=== PATIENT | male | born 1950 | race Caucasian/White ===

== ENCOUNTER → 2018-03-19 | Outpatient (RCR) | payer OTHER ==
[~2018-03-19] MED LIST: APRISO0.375 GM PO; BACTRIM DS TAB1 EACH; BUDESONIDE EC3 MG PO; CHLORTHALIDONE25 MG PO; GLIMEPIRIDE2 MG PO; LEVAQUIN500 MG PO; PREDNISONE20 MG PO; TAMIFLU75 MG PO; Z.0.ATENOLOL25 MG PO; Z.0.LISINOPRIL40 MG PO; Z.2.METFORMIN HCL500 PO
== END ==
LOC: PT 09:53
PROVIDERS: ATTEND Neurological Surgery
DX: M48.062 Spinal stenosis, lumbar region with neurogenic claudication (principal); M54.5 Low back pain; M62.81 Muscle weakness (generalized)

== ENCOUNTER 2018-03-31 10:00 | Outpatient (RCR) | payer OTHER | END 2018-04-16 | LOC: PT 10:00 | PROVIDERS: ATTEND Neurological Surgery | DX: M48.062 Spinal stenosis, lumbar region with neurogenic claudication (principal); M54.5 Low back pain; M62.81 Muscle weakness (generalized) ==

== ENCOUNTER → 2018-07-27 | Day surgery (SDC) | payer OTHER ==
[2018-07-24 14:45] LABS: BASOPHILS # (AUTO) 0.1 (0.0-0.1); BASOPHILS % 0.6 % (0.0-1.0); EOSINOPHILS # (AUTO) 0.4 (0.0-0.4); EOSINOPHILS % 3.5 % (0.0-6.0); HEMATOCRIT 36.1 % (38.2-49.6); HEMOGLOBIN 12.4 g/dL (14.0-18.0); LYMPHOCYTES # (AUTO) 3.8 (1.0-3.2); LYMPHOCYTES % 33.4 % (18.0-39.1); MEAN CORPUSCULAR HEMOGLOBIN 30.1 pg (28-32); MEAN CORPUSCULAR HGB CONC 34.3 g/dL (31-35); MEAN CORPUSCULAR VOLUME 87.6 fL (81-99); MONOCYTES # (AUTO) 0.8 (0.2-0.8); MONOCYTES % 6.8 % (4.4-11.3); NEUTROPHILS # (AUTO) 6.4 (2.1-6.9); NEUTROPHILS % 55.5 % (38.7-80.0); PLATELET COUNT 315 x10e3/uL (140-360); RED BLOOD COUNT 4.12 x10e6/uL (4.3-5.7); RED CELL DISTRIBUTION WIDTH 14.1 % (11.7-14.4)
[~2018-07-27] MED LIST changes: +ATENOLOL50 MG PO; +ATORVASTATIN CA20 MG PO; +BUPIVACAINE HCL 0.5% INJ 30 ML VIAL INJ ONE; +CLOPIDOGREL75 MG PO; +HYDROMORPHONE 2MG/ML 2 MG/ML ML ONE; +IOPAMIDOL 610MG/1ML 300 MG/ML VIAL IV ONE; +LIDOCAINE HCL 1% LOCAL INJ 20 ML VIAL ONE; +LISINOPRIL40 MG PO; +MIDAZOLAM HCL 2 MG/2 ML VIAL ONE; +NOVOLOG MI100 UNIT/1 SC; +NOVOLOG100 UNIT/1 SC; +ONDANSETRON HCL INJ 2MG/ML 2ML 2 MG/ML VIAL ONE; +PIOGLITAZONE HC45 MG PO; +PROPOFOL IV EMULSION 10 MG/ML 20 ML VIAL ONE; +TRIAMCINOLONE ACET 40 MG/ML VIAL ONE; +tresiba SC
--- OUTSIDE RECORDS SUMMARY | 2018-07-27 05:14 | XMS REPORT | Clinical Summary ---
Author Author [facility] Address Unknown Phone Unavailable Care Team Providers Care Numerical Analysis Group Manager Name Role Phone Baltazar Doyle MD PCP Allergies Comments Active Allergy Reactions Severity Noted Date Nausea Codeine 01/22/2018 hallucination Butorphanol Tartrate 01/22/2018 Medications End Date Status Medication Sig Dispensed Refills Start Date Active atenolol (TENORMIN) 25 MG Take 25 mg by 5 tablet mouth daily. 8 Active atorvastatin (LIPITOR) 40 Take 40 mg by 5 MG tablet mouth 8 nightly. Active clopidogrel (PLAVIX) 75 Take 75 mg by 5 mg tablet mouth daily. 8 Active TRESIBA FLEXTOUCH U-100 INJECT 1 100 unit/mL (3 mL) 35UNITS UP TO 8 insulin pen 50 UNITS PER DAY SUBCUTANEOUSL Y EVERY NIGHT AT BEDTIME Active isosorbide mononitrate TAKE 1 TABLET 3 (IMDUR) 30 MG 24 hr BY MOUTH 8 tablet EVERY DAY IN THE MORNING Active lisinopril Take 40 mg by 0 (PRINIVIL,ZESTRIL) 40 mg mouth daily. 8 tablet Active APRISO 0.375 gram 24 hr TAKE 4 2 capsule CAPSULES BY 8 MOUTH EVERY DAY Active nitroglycerin (NITROSTAT) 0 0.3 MG SL tablet 8 Active aspirin (ECOTRIN) 81 MG Take 81 mg by 0 enteric coated tablet mouth daily. Active insulin ASPART (NovoLOG) Inject 15 0 100 unit/mL injection Units under the skin 3 (three) times a day before meals. Active budesonide (UCERIS) 9 mg Take by 0 tablet, delayed & mouth. ext.release 02/01/2018 cyclobenzaprine Take 1 tablet 30 tablet 0 (FLEXERIL) 5 mg (5 mg total) 8 tabletIndications: Lumbar by mouth paraspinal muscle spasm every 8 (eight) hours as needed for muscle spasms for up to 10 days. Active Problems Problem Noted Date Hypertension Diabetes mellitus type 2 in nonobese Coronary artery disease Encounters Care Team Description Date Type Specialty Krista Larson, DO Lumbar paraspinal muscle spasm 03/25/2018 Refill Sports Medicine Krista Larson DO Lumbar paraspinal muscle spasm (Primary Dx); Arthritis of lumbar spine 01/22/2018 Office Visit Sports Medicine after 07/26/2017 Family History Medical History Relation Name Comments Pancreatic cancer Brother No Known Problems Father No Known Problems Mother Relation Name Status Comments Brother Father Mother Social History Date Tobacco Use Types Packs/Day Years Used Current Every Day Smoker Cigarettes 1 50 Smokeless Tobacco: Never Used Tobacco Cessation: Ready to Quit: No; Counseling Given: Yes Alcohol Use Drinks/Week oz/Week Comments No Alcohol Habits Answer Date Recorded How often do you have a drink containing alcohol? Never 01/22/2018 How many drinks containing alcohol do you have on Not asked a typical day when you are drinking? How often do you have six or more drinks on one Not asked occasion? Sex Assigned at Date Recorded Not on file Industry Job Start Date Occupation Not on file Not on file Not on file Travel End Travel History Travel Start No recent travel history available. Last Filed Vital Signs Time Taken Vital Sign Reading 01/22/2018 2:40 PM CUTTER INSPECTOR Blood Pressure 112/76 01/22/2018 1:44 PM CUTTER INSPECTOR Pulse 79 - Temperature - - Respiratory Rate - - Oxygen Saturation - - Inhaled Oxygen - Concentration 01/22/2018 1:44 PM CUTTER INSPECTOR Weight 91.5 kg (201 lb 12.8 oz) 01/22/2018 1:44 PM CUTTER INSPECTOR Height 177.8 cm (5' 10") 01/22/2018 1:44 PM CUTTER INSPECTOR Body Mass Index 28.96 Plan of Treatment Health Maintenance Due Date Last Done Comments DIABETIC RETINAL EYE EXAM 1950 DIABETIC FOOT EXAM 06/28/1961 URINE MICROALBUMIN 06/28/1961 COLON CANCER SCREENING 06/28/2001 SHINGLES VACCINES (#1) 06/28/2001 65+ PNEUMOCOCCAL VACCINE 06/28/2016 (1 of 2 - PCV13) INFLUENZA VACCINE 09/17/2018 Procedures Comments Procedure Name Priority Date/Time Associated Diagnosis XR LUMBAR SPINE 2 OR 3 VW Routine 01/22/2018 Low back pain, 2:00 PM CUTTER INSPECTOR unspecified back pain laterality, unspecified chronicity, with sciatica presence unspecified after 07/26/2017 Results * XR Lumbar Spine 2 Or 3 Vw (01/22/2018 2:00 PM CUTTER INSPECTOR) Specimen Narrative Performed At [facility] 3V of the lumbar spine were personally reviewed by me in clinic. There are no fractures, dislocations, suspicious bone lesions or soft tissue masses. There is diffuse mild to moderate degenerative disc disease with anterior spurring of the vertebral bodies. L5-S1 has more severe disease with apparent partial fusion. The SI joints are mildly arthritic. The lordotic curve is mildly flattened. There is no listhesis. Surgical clips are seen in the RUQ consistent with history of cholecystectomy. Krista Larson DO [facility] Performing Organization Address City/State/Zipcode Phone Number [facility] [address] [place] [address] after 07/26/2017 Insurance Type Payer Benefit Subscriber ID Effective Phone Address Plan / Dates Group HMO CIGNA CIGNA OPEN xxxxxxxxxxx 2015-P ACCESS/NET resent WORK Advance Directives Patient has advance care planning documents on file. For more information, nura johnson contact: Carlos Alberto Valerio [address] [place] [address]
--- OUTSIDE RECORDS SUMMARY | 2018-07-27 05:14 | XMS REPORT ---
[facility] Address Unknown Phone Unavailable Care Team Providers Care Certified Dialysis Technician Name Role Phone Unavailable Unavailable Payers Payer Name Policy Type Policy Number Effective Date Expiration Date Problems This patient has no known problems. Allergies, Adverse Reactions, Alerts Allergy Name Allergy Type Status Severity Reaction(s) Onset Date Inactive Date Treating Clinician Comments butorphanol tartrate DA Active MO 2018-01-19 00:00:00 codeine DA Active SV 2018-01-19 00:00:00 codeine DA Active SV 2018-01-06 00:00:00 butorphanol tartrate DA Active MO 2010-09-23 00:00:00 Medications This patient has no known medications. Results Test Description Test Time Test Comments Text Results Atomic Results Result Comments INTERVERTEBRAL DISC 2018-03-05 14:42:00 RUN DATE: 03/05/18 [facility] PAGE 1 RUN TIME: 1442 Specimen Inquiry RUN USER: INTERFACE PATIENT: ALEXI LAMB LOC: [facility] U #: [id number] AGE/SX: 67/M [facility] RE03/02/18REG DR: Giovanny Bertrand MD : 52 BED: A DIS: 03/03/18 STATUS: DIS Ana TLOC: SPEC #: [id number] RECD: 03/02/18 STATUS: NIRMALA RE #: [id number] STEPHAN: 03/02/18-[address]: Giovanny Bertrand MD ENTERED: 03/02/18 SP TYPE: INT DISC OTHR DR: Baltazar Doyle III, MD ORDERED: GROSS COPIES TO: Giovanny Bertrand MD [address] [place] [address] Baltazar Doyle III, MD [address] [place], [place] [id number] PROCEDURES: GROSS (03/05/18-140) TISSUES: LUMBAR VERTEBRA, NOS - LAGIMENTUM AND FAVUOR, DISC CLINICAL HISTORY COLLECTION DATE: 03/02/18 L3-4 SPINAL STENOSIS FINAL DIAGNOSIS L3-4 lumbar ligament, lamina, and disc, bilateral laminectomy: LIGAMENT TYPE FIBROCONNECTIVE TISSUE, BONE, AND INTERVERTEBRAL DISC MATERIAL NEGATIVE FOR MALIGNANCY DMW/sm D 50284, 32009 MACROSCOPIC The specimen is received in formalin, labeled with the patient's name, and identified as "lumbar ligamentum flavum". It consists of multiple sauer fibrous sauer and pale yellow fragments of tissue and bone measuring 5.0 x 4.5 x 1 cm in aggregate. The specimen is allowed to decalcify before samples are submitted. Sign Maintenance tissue is submitted in a single CONTINUED ON NEXT PAGE RUN DATE: 03/05/18 [facility] PAGE 2 RUN TIME: 1442 Specimen Inquiry RUN USER: INTERFACE SPEC #: [id number] PATIENT: ALEXI LAMB #[id number] (Co ntinued) MACROSCOPIC (Continued) cassette. GROSS PERFORMED AT [facility] [address] [place] [address] (P)[phone] MICROSCOPIC MICROSCOPIC PERFORMED AT [facility] All of the stains, including any controls performed, stain appropriately. [facility] [address] [place] [address] (P)[phone] PERFORMING SITE Diagnosis performed at: [facility] [address] [facility] [address] Signed SIGNATURE ON FILE Ava Torres 03/05/18 1442 END OF REPORT
[2018-07-27 07:55] VITALS: BP 149/78
--- NOTE | 2018-07-27 16:41 | Operative Report ---
DATE OF PROCEDURE: 07/27/2018 SURGEON: Tam Knox MD PREOPERATIVE DIAGNOSIS: Osteoarthritis, left hip. POSTOPERATIVE DIAGNOSIS: Osteoarthritis, left hip. PROCEDURE: Left hip fluoroscopic-guided corticosteroid injection. INDICATIONS: The patient is a 68-year-old gentleman, who has advanced osteoarthritis of his left hip. He has previously been scheduled for left total hip replacement. His hemoglobin A1c fell out of the recommended range. We have encouraged him to improve his diabetic management. He would like to have corticosteroid injection in the meantime. The risks and benefits were explained. He states he understands and wishes to proceed. DESCRIPTION OF PROCEDURE: The patient was brought to the operating room and placed under MAC anesthetic. His left hip was prepped and draped in a sterile manner. A preoperative time-out was performed. Using a C-arm image intensifier, an 18-gauge spinal needle was placed into the inferior recess of the patella. Clear synovial fluid was aspirated from the hip. A mixture of 40 mg of Kenalog and 8 mL of Marcaine were injected into the hip joint. The needle was retrieved and a Band-Aid was applied. There was no blood loss and all needle and sponge counts were correct. Tam Knox MD DR/QINGL /[id number]
== END | disposition home or self-care (01) ==
LOC: OR 05:03
PROVIDERS: ATTEND Specialist
DX: M16.0 Bilateral primary osteoarthritis of hip (principal); E11.9 Type 2 diabetes mellitus without complications; I10 Essential (primary) hypertension; F17.210 Nicotine dependence, cigarettes, uncomplicated; Z88.5 Allergy status to narcotic agent; Z88.8 Allergy status to other drugs, medicaments and biological substances; Z89.611 Acquired absence of right leg above knee; I25.10 Atherosclerotic heart disease of native coronary artery without angina pectoris; Z95.5 Presence of coronary angioplasty implant and graft; K21.9 Gastro-esophageal reflux disease without esophagitis; Z87.442 Personal history of urinary calculi; Z79.4 Long term (current) use of insulin; Z01.810 Encounter for preprocedural cardiovascular examination; Z01.812 Encounter for preprocedural laboratory examination
CPT/HCPCS: 20610; 36415; 77002; 85025; 93005; J1170; J2250; J2405; J2704; J3301; Q9967; J2001

== ENCOUNTER 2018-09-14 07:30 | Inpatient (IN) | payer OTHER, MEDICARE ==
[2018-09-11 15:43] LABS: BASOPHILS # (AUTO) 0.1 (0.0-0.1); BASOPHILS % 0.9 % (0.0-1.0); EOSINOPHILS # (AUTO) 0.4 (0.0-0.4); EOSINOPHILS % 3.1 % (0.0-6.0); HEMATOCRIT 39.1 % (38.2-49.6); HEMOGLOBIN 13.3 g/dL (14.0-18.0); LYMPHOCYTES # (AUTO) 4.6 (1.0-3.2); LYMPHOCYTES % 32.3 % (18.0-39.1); MEAN CORPUSCULAR HEMOGLOBIN 30.1 pg (28-32); MEAN CORPUSCULAR VOLUME 88.5 fL (81-99); MONOCYTES # (AUTO) 0.9 (0.2-0.8); MONOCYTES % 6.5 % (4.4-11.3); NEUTROPHILS # (AUTO) 8.2 (2.1-6.9); NEUTROPHILS % 56.8 % (38.7-80.0); PLATELET COUNT 328 x10e3/uL (140-360); RED BLOOD COUNT 4.42 x10e6/uL (4.3-5.7); RED CELL DISTRIBUTION WIDTH 13.2 % (11.7-14.4)
[2018-09-11 16:07] LABS: ANION GAP 15.5 mmol/L (8-16); CALCIUM 9.7 mg/dL (8.4-10.2); CREATININE, SERUM 1.35 mg/dL (0.72-1.25); POTASSIUM 3.5 mmol/L (3.5-5.1)
--- NOTE | 2018-09-11 16:14 | Diagnostic Imaging Report ---
EXAMINATION: CHEST 2 VIEWS INDICATION: Pre-operative COMPARISON: None FINDINGS: TUBES and LINES: None. LUNGS: The lung volumes are normal. No focal consolidation or pulmonary edema. PLEURA: No pleural effusion or pneumothorax. HEART AND MEDIASTINUM: The cardiomediastinal silhouette is normal in size and contour. BONES AND SOFT TISSUES: No acute fracture or dislocation. UPPER ABDOMEN: No free air under the diaphragm. IMPRESSION: No focal pneumonia or pulmonary edema. Signed by: Florencia Mosley MD on 09/11/2018 4:10 PM
[~2018-09-14] VITALS: Ht 177.8 cm; Wt 88.9 kg
[~2018-09-14 07:30] MED LIST changes: +ASPIRIN81 MG PO; +BACITRACIN 50,000 UNIT VIAL ONE; -BUPIVACAINE HCL 0.5% INJ 30 ML VIAL INJ ONE; -HYDROMORPHONE 2MG/ML 2 MG/ML ML ONE; -IOPAMIDOL 610MG/1ML 300 MG/ML VIAL IV ONE; -LIDOCAINE HCL 1% LOCAL INJ 20 ML VIAL ONE; -MIDAZOLAM HCL 2 MG/2 ML VIAL ONE; -ONDANSETRON HCL INJ 2MG/ML 2ML 2 MG/ML VIAL ONE; -PROPOFOL IV EMULSION 10 MG/ML 20 ML VIAL ONE; +ROPIVACAINE 246.25 MG, EPINEPHRINE HCL 1:1000 1ML 0.5 MG, CLONIDINE HCL 0.08 MG, KETORO... INJ ONE; +SODIUM CHLORIDE 0.9% 500ML 500 ML ONE; +TRANEXAMIC ACID 1,000 MG/10 ML ML ONE; -TRIAMCINOLONE ACET 40 MG/ML VIAL ONE; +VANCOMYCIN HCL 1,000 MG ONE
--- OUTSIDE RECORDS SUMMARY | 2018-09-14 07:33 | XMS REPORT | Clinical Summary ---
Author Author [facility] Address Unknown Phone Unavailable Care Team Providers Care Multi Line Claims Adjuster Name Role Phone Baltazar Doyle MD PCP Unavailable Allergies Comments Active Allergy Reactions Severity Noted [...] spine 01/22/2018 Office Visit Sports Medicine after 09/13/2017 Family History Medical History Relation Name Comments [...] Taken Vital Sign Reading 01/22/2018 2:40 PM DIRECTOR OF MATERIALS Blood Pressure 112/76 01/22/2018 1:44 PM DIRECTOR OF MATERIALS Pulse 79 - Temperature - - Respiratory Rate - - Oxygen Saturation - - Inhaled Oxygen - Concentration 01/22/2018 1:44 PM DIRECTOR OF MATERIALS Weight 91.5 kg (201 lb 12.8 oz) 01/22/2018 1:44 PM DIRECTOR OF MATERIALS Height 177.8 cm (5' 10") 01/22/2018 1:44 PM DIRECTOR OF MATERIALS Body Mass Index 28.96 Plan of Treatment Health Maintenance Due Date Last Done Comments DIABETIC RETINAL EYE EXAM 1950 DIABETIC FOOT EXAM 06/28/1961 URINE MICROALBUMIN 06/28/1961 COLONOSCOPY SCREENING 06/28/2001 SHINGLES VACCINES (#1) 06/28/2001 65+ PNEUMOCOCCAL VACCINE 06/28/2016 (1 of 2 - PCV13) INFLUENZA VACCINE 09/17/2018 Procedures Comments Procedure Name Priority Date/Time Associated Diagnosis XR LUMBAR SPINE 2 OR 3 VW Routine 01/22/2018 Low back pain, 2:00 PM DIRECTOR OF MATERIALS unspecified back pain laterality, unspecified chronicity, with sciatica presence unspecified after 09/13/2017 Results * XR Lumbar Spine 2 Or 3 Vw (01/22/2018 2:00 PM DIRECTOR OF MATERIALS) Specimen Narrative Performed At [facility] 3V [...] RUQ consistent with history of cholecystectomy. Krista Larson, [facility] Primary [facility] Performing Organization Address City/State/Zipcode Phone Number [facility] [address] [place] [address] after 09/13/2017 Insurance Type Payer Benefit Subscriber ID Effective Phone Address Plan / Dates Group HMO CIGNA CIGNA OPEN xxxxxxxxxxx 2015-P ACCESS/NET resent WORK Advance Directives Patient has advance care planning documents on file. For more information, nura e contact: Carlos Alberto Valerio [address] [place] [address]
[2018-09-14] MEDS ORDERED: DEXAMETHASONE SOD PHOS 10 MG/1 ML VIAL ONE (08:03)
[2018-09-14] MEDS ORDERED: GABAPENTIN 300 MG CAP ONE (08:03)
[2018-09-14] MEDS ORDERED: CELECOXIB 200 MG CAP ONE (08:03)
[2018-09-14] MEDS ORDERED: CEFAZOLIN SOD 1 GM/NS 50ML 100 ML IV ONE (08:03)
[2018-09-14] MEDS ORDERED: BUPIVACAINE 7.5MG/ML /DEXTROSE 82.5MG/ML 2 ML AMP INJ ONE (09:22)
[2018-09-14] MEDS ORDERED: BUPIVACAINE HCL 0.5% 10ML MPF VIAL INJ ONE (09:36)
[2018-09-14] MEDS ORDERED: ACETAMINOPHEN 650 MG SUPP PR PRN (11:45)
[2018-09-14] MEDS ORDERED: PROMETHAZINE HCL (IM) 25 MG/ML VIAL INJ PRN (11:45)
[2018-09-14] MEDS ORDERED: DOCUSATE SODIUM 100 MG CAP PO PRN (11:45)
[2018-09-14] MEDS ORDERED: HYDROCODONE/APAP 7.5MG-325MG 1 EA TAB PO PRN (11:45)
[2018-09-14] MEDS ORDERED: KETOROLAC TROMETHAMINE 30 MG/ML VIAL IV PRN (11:45)
[2018-09-14] MEDS ORDERED: ONDANSETRON HCL INJ 2MG/ML 2ML 2 MG/ML VIAL IV PRN (11:45)
[2018-09-14] MEDS ORDERED: HYDROCODONE/APAP 5MG-325MG TAB PO PRN (11:45)
[2018-09-14] MEDS ORDERED: DIPHENHYDRAMINE HCL INJ 50 MG/ML VIAL IM/IV PRN (11:45)
[2018-09-14] MEDS ORDERED: ZOLPIDEM TARTRATE 5 MG TAB PO PRN (11:45)
[2018-09-14] MEDS ORDERED: FENTANYL CITRATE/PF 100MCG/2 ML INJ ONE ×2 (11:58→18:33)
--- NOTE | 2018-09-14 12:10 | Diagnostic Imaging Report ---
EXAMINATION: PELVIS AP 1-2 VIEWS INDICATION: Postoperative COMPARISON: None FINDINGS: Single AP portable pelvis radiograph demonstrates postoperative findings of left total hip replacement in anatomic alignment. There is postoperative subcutaneous air and surgical skin eliseo. No acute fracture. Mild degenerative changes involve the right hip joint. IMPRESSION: Anatomic alignment status post left total hip replacement. Signed by: Florencia Mosley MD on 09/14/2018 12:07 PM
[2018-09-14] MEDS: ACETAMINOPHEN 1000 MG/100 ML IV SCH ×3 (12:16→23:27)
[2018-09-14] MEDS ORDERED: KETOROLAC TROMETHAMINE 30 MG/ML VIAL ONE (12:17)
[2018-09-14] MEDS ORDERED: ACETAMINOPHEN 1000 MG/100 ML 100 ML IV ONE (12:17)
--- OUTSIDE RECORDS SUMMARY | 2018-09-14 12:40 | XMS REPORT | Clinical Summary ---
Author Author [facility] Address Unknown Phone Unavailable Care Team Providers Care Hand Edger Name Role Phone Baltazar Doyle MD PCP [...] Taken Vital Sign Reading 01/22/2018 2:40 PM WARP YARN SORTER Blood Pressure 112/76 01/22/2018 1:44 PM WARP YARN SORTER Pulse 79 - Temperature - - Respiratory Rate - - Oxygen Saturation - - Inhaled Oxygen - Concentration 01/22/2018 1:44 PM WARP YARN SORTER Weight 91.5 kg (201 lb 12.8 oz) 01/22/2018 1:44 PM WARP YARN SORTER Height 177.8 cm (5' 10") 01/22/2018 1:44 PM WARP YARN SORTER Body Mass Index 28.96 Plan of Treatment [...] Routine 01/22/2018 Low back pain, 2:00 PM WARP YARN SORTER unspecified back pain laterality, unspecified chronicity, with sciatica presence unspecified after 09/13/2017 Results * XR Lumbar Spine 2 Or 3 Vw (01/22/2018 2:00 PM WARP YARN SORTER) Specimen Narrative Performed At [facility] 3V [...] Performing Organization Address City/State/Zipcode Phone Number [facility] [address] [place] [address] after 09/13/2017 Insurance Type Payer Benefit Subscriber ID Effective Phone Address Plan / Dates Group HMO CIGNA CIGNA OPEN xxxxxxxxxxx 2015-P ACCESS/NET resent WORK Advance Directives Patient has advance care planning documents on file. For more information, nura e contact: Carlos Alberto Valerio [address] [place] [address]
--- NOTE | 2018-09-14 12:55 | NUR ---
Received patient via stretcher from PACU. Accompanied by [email or web address] to time, person, place, situation. Respirations even and unlabored. Aquacel dressing to left hip clean, dry, and intact. Wedge between legs. Oriented patient to room. Instructed to use call light for assistance. Will continue to monitor.
[2018-09-14 13:27] VITALS: BP 129/85
[2018-09-14] MEDS: SODIUM CHLORIDE 0.9% 1000ML 1,000 ML IV SCH ×2 (13:30→23:27)
[2018-09-14 13:36] VITALS: BP 138/68
[2018-09-14] MEDS ORDERED: DEXTROSE 50% SYRINGE 50 ML IV PRN (15:15)
[2018-09-14 15:37] VITALS: BP 121/59
[2018-09-14] MEDS: CELECOXIB 200 MG CAP PO SCH (16:47)
[2018-09-14] MEDS: ASPIRIN 325 MG TAB PO SCH (16:47)
[2018-09-14] MEDS: INSULIN LISPRO 100 UNIT/1 ML 3ML VIAL SQ SCH ×3 (17:00→20:00)
[2018-09-14] MEDS: CEFAZOLIN SOD 1 GM/NS 50ML 50 ML IV SCH (18:00)
[2018-09-14] MEDS ORDERED: MIDAZOLAM HCL 2 MG/2 ML VIAL ONE (18:33)
--- NOTE | 2018-09-14 18:45 | NUR ---
Received bedside shift report from the dayshift RN. The patient is sitting up on the bed, and not in distress. Call light within reach, bed height low, wheels lock and side rails up x2.
[2018-09-14] MEDS ORDERED: SEVOFLURANE INHAL SOLN 250 ML PEN BTL ONE (19:02)
[2018-09-14] MEDS ORDERED: LIDOCAINE HCL 2% LOCAL INJ 5 ML SDV VIAL INJ ONE (19:02)
[2018-09-14] MEDS ORDERED: DEXAMETHASONE SOD PHOS INJ 4 MG/ML VIAL ONE (19:02)
[2018-09-14] MEDS ORDERED: PROPOFOL IV EMULSION 10 MG/ML 20 ML VIAL ONE (19:02)
[2018-09-14] MEDS ORDERED: ONDANSETRON HCL INJ 2MG/ML 2ML 2 MG/ML VIAL ONE (19:02)
--- NOTE | 2018-09-14 19:10 | NUR ---
Report given to oncoming nurse of patient's status. Resting in bed. [email or web address] to time ,person, place. Respirations even and unlabored. Dressing to left hip clean, dry, and intact . Wedge in between legs. Side rails upx2, call light within reach.
[2018-09-14 20:00] VITALS: BP 119/69
[2018-09-14] MEDS ORDERED: ATORVASTATIN 20 MG TAB PO SCH (21:00)
[2018-09-14 23:03] VITALS: BP 119/69
[2018-09-15] VITALS: BP 128/69
[2018-09-15] MEDS: CEFAZOLIN SOD 1 GM/NS 50ML 50 ML IV SCH ×2 (00:25→08:03)
[2018-09-15 04:00] VITALS: BP 118/57
[2018-09-15] MEDS: ACETAMINOPHEN 1000 MG/100 ML IV SCH (04:41)
--- NOTE | 2018-09-15 05:59 | Consultation ---
DATE OF CONSULTATION: REASON FOR CONSULTATION: Postop medical management. HISTORY OF PRESENT ILLNESS: The patient is a 68-year-old status post left hip arthroplasty for end-stage osteoarthritis. He is doing quite well postoperatively with minimal pain. He denies fever, chills, nausea, vomiting, headache, shortness of breath or dizziness on review of systems. PAST MEDICAL HISTORY: Significant for diabetes, high blood pressure, right lower leg amputation, chronic kidney disease stage 3, and hyperlipidemia. MEDICATIONS: See MAR. ALLERGIES: CODEINE, BUTORPHANOL. SOCIAL HISTORY: . Current smoker. Denies alcohol use. FAMILY HISTORY: Tuberculosis. PHYSICAL EXAMINATION: VITAL SIGNS: Temperature 96.0, pulse 82, blood pressure 128/69, sats 97% on room air. GENERAL: No apparent distress, lying in bed. NECK: Supple. No lymphadenopathy. CARDIOVASCULAR: Regular rate and rhythm. LUNGS: Clear to auscultation bilaterally. ABDOMEN: Good bowel sounds. Soft, nontender. EXTREMITIES: No clubbing or cyanosis. NEUROLOGIC: Nonfocal. Right lower leg is amputated. ASSESSMENT/PLAN: 1. Status post left hip arthroplasty. Continue postoperative care since he is doing well. 2. Anemia. Check a CBC. 3. Chronic kidney disease stage 3. Continue to monitor. 4. Diabetes. Continue with current care monitoring. 5. Hypertension. Continue with his medication. 6. Hyperlipidemia. We will continue with his medication of Lipitor. Please see hospital chart for full details. MD MEHRDAD Melgar/LEYLA /[id number]
[2018-09-15 06:09] LABS: HEMOGLOBIN 9.3 g/dL (14.0-18.0)
--- NOTE | 2018-09-15 06:13 | NUR ---
Received lab critical on H/H: Dr. Limon was informed. No new order.
[2018-09-15] MEDS: INSULIN LISPRO 100 UNIT/1 ML 3ML VIAL SQ SCH ×4 (07:30→12:00)
[2018-09-15] MEDS: ASPIRIN 325 MG TAB PO SCH (08:03)
[2018-09-15] MEDS: CELECOXIB 200 MG CAP PO SCH (08:03)
[2018-09-15 08:05] VITALS: BP 139/64
[2018-09-15 08:23] VITALS: BP 139/64
[2018-09-15] MEDS ORDERED: ATENOLOL 50 MG TAB PO SCH (09:00)
[2018-09-15] MEDS ORDERED: LISINOPRIL 20 MG TAB PO SCH (09:00)
[2018-09-15] MEDS ORDERED: ASPIRIN 81 MG CHEW TAB PO SCH (09:00)
[2018-09-15] MEDS ORDERED: PIOGLITAZONE HCL 45 MG TAB PO SCH (09:00)
[2018-09-15] MEDS ORDERED: ACETAMINOPHEN 1000 MG/100 ML IV PRN (11:45)
--- NOTE | 2018-09-15 11:49 | Operative Report ---
DATE OF PROCEDURE: 09/14/2018 SURGEON: Tam Knox MD NEGATIVE CLEANER: Ronak Cutler, certified PA. PREOPERATIVE DIAGNOSIS: Osteoarthritis of left hip. POSTOPERATIVE DIAGNOSIS: Osteoarthritis of left hip. PROCEDURE: Left total hip arthroplasty. INDICATIONS: The patient is a 68-year-old gentleman, who has osteoarthritis of his left hip. He has failed extensive conservative management. He has even been through fluoroscopic guided corticosteroid injections in his left hip. These provided temporary, but not lasting relief. He would now like to proceed with a left total hip replacement. The risks and benefits have been explained. He states he understands and wishes to proceed. PROCEDURE IN DETAIL: The patient was brought to the operating room and given a spinal and light general anesthetic. He received prophylactic antibiotics and tranexamic acid in the holding area. He was positioned in the right lateral decubitus position. Positioning was accommodating, what was done in a way to accommodate his right [id number] amputation. His left hip was prepped and draped in a sterile manner. A preoperative time-out was performed. A limited incision posterior approach was made to the left hip. Hemostasis was obtained with electrocautery. Care was taken to avoid injury to the sciatic nerve. A deep self-retaining Charnley retractor was placed. The posterior capsule was carefully exposed. The quadratus and the capsule were released. The piriformis was preserved. The hip was dislocated and an oscillating saw was used to resect the femoral head. Complete loss of articular cartilage was noted. Acetabular retractors were carefully placed. The patient had a well-defined and preserved abductor musculature. The remnant of the labrum was excised with a long-handled knife. The true floor of the acetabulum was established with a 46 mm reamer. The socket was thoroughly irrigated on numerous occasions with a shower tip pulsatile lavage and a spray mixture of diluted vancomycin and polymyxin spray. The socket was sequentially reamed up to 55 mm. This accomplished bleeding hemispherical cancellous bone. A Ana Biomet 56 mm outer diameter OsseoTi socket was then impacted into place. Excellent primary fixation was felt to be obtained. A highly cross-linked polyethylene liner with a 36 mm inner diameter was then impacted into place. Care was taken to make sure that there was no evidence of soft tissue interposition. The socket was packed with a moistly soaked lap sponge. Attention was directed towards the proximal femur. A box cutting osteotome and taper pin reamers were used to establish entry to the femoral canal. The Taperloc broaches were impacted. A size 13 stem was ultimately felt to provide appropriate canal fill and rotational stability. Trial reductions were performed. A standard neck and 36 mm head provided appropriate soft tissue balancing in a full arc of motion. The trial implants were removed. The hip was further irrigated with a shower tip pulsatile lavage. A 100 mL premixed pericapsular YOLANDA injection was placed into the surrounding soft tissue. The implants were seated. The femoral neck was irrigated and dried. The head was impacted. A final reduction was performed. The posterior capsule was carefully repaired using #2 Ethibond. The gluteal fascia and proximal tensor fascia were closed with #2 Ethibond. The skin was closed with subcuticular Vicryl and eliseo. A sterile Aquacel bandage was applied. He was returned to the supine position, extubated and transported to the recovery room in stable condition. Estimated blood loss was 75 mL. All needle and sponge counts were correct. Tam Knox MD DR/LEYLA /[id number]
--- NOTE | 2018-09-15 12:46 | NUR ---
PATIENT DME AND HOME HEALTH COMPANIES PRE-ARRANGED BY DR. NICOLE'S OFFICE. PATIENT WITH HOME HEALTH AND DME CONTACT INFORMATION. PATIENT AWARE TO CALL CM IF ANY PROBLEMS OCCUR WITHIN 3 DAYS POST- DISCHARGE. HOME HEALTH EXPLAINED IN DEPTH WITH SERVICES PROVIDED. PATIENT VERBALLY UNDERSTOOD. THE FOLLOWING HOME HEALTH AND DME COMPANY VERIFIED PATIENT IS ON SERVICE WITH THEM: [employer] : (WALKER WITH WHEELS, CPM, 3-IN-1 COMMODE) (P) [phone] (F) [phone] CM SPOKE TO [facility]. EQUIPMENT CONFIRMED DELIVERY BY [facility] AND PATIENT. [facility] PROVIDERS (P) [phone] (F) [phone] SETH, LIAISON FOR HOME CARE PROVIDERS CONFIRMED START DATE 09/[address] NICOLE. PATIENT AWARE. SETH SAW PATIENT AT BEDSIDE AND GAVE CONTACT INFORMATION
--- NOTE | 2018-09-15 13:23 | NUR ---
Patient states " will send rx for pain to my pharmacy"
--- NOTE | 2018-09-15 13:31 | NUR ---
Right hand IV discontinued. No signs of infiltration noted. 2x2 gauze and tape placed. Taken via wheelchair to personal car. Accompanied by . [email or web address] to time, person, place, situation. Respirations even and unlabored. Dressing to left hip clean, dry, and intact. Discharge instructions, bedside commode, walker , and all personal belongings taken with patient.
== END 2018-09-15 13:31 | disposition home health service (06) | DRG 470 ==
LOC: OR 07:30 → PACU V 11:40 → MED/SURG 12:55
PROVIDERS: ADMIT Specialist; ATTEND Specialist
PROC: 0SRB04A Replacement of Left Hip Joint with Ceramic on Polyethylene Synthetic Substitute, Uncemented, Open Approach (ICD-10-PCS; principal; 2018-09-14 09:30)
DX: M16.12 Unilateral primary osteoarthritis, left hip (principal); E11.22 Type 2 diabetes mellitus with diabetic chronic kidney disease; I12.9 Hypertensive chronic kidney disease with stage 1 through stage 4 chronic kidney disease, or unspecified chronic kidney disease; N18.3 Chronic kidney disease, stage 3 (moderate); E78.5 Hyperlipidemia, unspecified; F17.200 Nicotine dependence, unspecified, uncomplicated; Z79.4 Long term (current) use of insulin; Z89.511 Acquired absence of right leg below knee; Z79.02 Long term (current) use of antithrombotics/antiplatelets; Z79.82 Long term (current) use of aspirin; Z88.5 Allergy status to narcotic agent
CPT/HCPCS: 36415; 71046; 72170; 80048; 82948; 85014; 85018; 85025; 86850; 86900; 86920; C1713; J0171; J0690; J1100; J1885; J2001; J2250; J2405; J2795; J3010; J3370; J7030; J7040

== ENCOUNTER 2018-11-10 00:23 | Emergency (ER) | payer OTHER, MEDICARE ==
[~2018-11-10] VITALS: Ht 177.8 cm; Wt 88.9 kg
[~2018-11-10 00:23] MED LIST changes: -BACITRACIN 50,000 UNIT VIAL ONE; -ROPIVACAINE 246.25 MG, EPINEPHRINE HCL 1:1000 1ML 0.5 MG, CLONIDINE HCL 0.08 MG, KETORO... INJ ONE; -SODIUM CHLORIDE 0.9% 500ML 500 ML ONE; -TRANEXAMIC ACID 1,000 MG/10 ML ML ONE; -VANCOMYCIN HCL 1,000 MG ONE
--- OUTSIDE RECORDS SUMMARY | 2018-11-10 00:29 | XMS REPORT | Clinical Summary ---
Author Author [facility] Organization [facility] Address Unknown Phone Unavailable Care Team Providers Care Syrup Mixer Helper Name Role Phone Baltazar Doyle MD PCP [...] spine 01/22/2018 Office Visit Sports Medicine after 11/09/2017 Family History Medical History Relation Name Comments Pancreatic cancer Brother No Known Problems Father No Known Problems Mother Relation Name Status Comments Brother Father Mother Social History Date Tobacco Use Types Packs/Day Years Used Current Every Day Smoker Cigarettes 1 50 Smokeless Tobacco: Never Used Tobacco Cessation: Ready to Quit: No; Counseling Given: Yes Drinks/Week oz/Week Comments Alcohol Use No Alcohol Habits Answer Date Recorded How [...] travel history available. Last Filed Vital Signs Reading Time Taken Comments Vital Sign 112/76 01/22/2018 2:40 PM WRAPPER HANDS SPRAYER Blood Pressure 79 01/22/2018 1:44 PM WRAPPER HANDS SPRAYER Pulse - - Temperature - - Respiratory Rate - - Oxygen Saturation - - Inhaled Oxygen Concentration 91.5 kg (201 lb 12.8 oz) 01/22/2018 1:44 PM WRAPPER HANDS SPRAYER Weight 177.8 cm (5' 10") 01/22/2018 1:44 PM WRAPPER HANDS SPRAYER Height 28.96 01/22/2018 1:44 PM WRAPPER HANDS SPRAYER Body Mass Index Plan of Treatment Health Maintenance Due Date Last Done Comments DIABETIC RETINAL EYE EXAM 1950 DIABETIC FOOT EXAM 06/28/1961 URINE MICROALBUMIN 06/28/1961 COLONOSCOPY SCREENING 06/28/2001 SHINGLES VACCINES (#1) 06/28/2001 65+ PNEUMOCOCCAL VACCINE 06/28/2016 (1 of 2 - PCV13) INFLUENZA VACCINE 09/17/2018 Procedures Comments Procedure Name Priority Date/Time Associated Diagnosis XR LUMBAR SPINE 2 OR 3 VW Routine 01/22/2018 Low back pain, 2:00 PM WRAPPER HANDS SPRAYER unspecified back pain laterality, unspecified chronicity, with sciatica presence unspecified after 11/09/2017 Results * XR Lumbar Spine 2 Or 3 Vw (01/22/2018 2:00 PM WRAPPER HANDS SPRAYER) Specimen Narrative Performed At [facility] [...] with history of cholecystectomy. Krista Larson DO [facility] Primary Care Sports Medicine Performing Organization Address City/State/Zipcode Phone Number [facility]FA[facility] [address] [place] [address] after 11/09/2017 Insurance Type Payer Benefit Subscriber ID Effective Phone Address Plan / Dates Group HMO CIGNA CIGNA OPEN xxxxxxxxxxx [id number] ACCESS/NET resent WORK Advance Directives For more information, please contact: [phone] Patient Bilingual Operator Explanation Type Date Recorded Advance Directives, Living Will and Medical Power of Master Dyer
--- NOTE | 2018-11-10 01:56 | Diagnostic Imaging Report ---
ANKLE 3+ VIEWS LEFT - 3 views HISTORY: Pain COMPARISON: None available. FINDINGS: Old distal tibial fracture deformity with 3 fixating screws within distal tibial metadiaphysis. The inferior most screw is fractured. Loss of tibiotalar joint space and ankle mortise. Significant calcaneotalar joint space narrowing. IMPRESSION: Chronic left ankle deformity as described above. Fractured most inferior distal tibial screw. No evidence of acute displaced fracture or dislocation. Signed by: Dr. Dragan Patel MD on 11/10/2018 1:52 AM
[2018-11-10 02:13] VITALS: BP 141/76
== END 2018-11-10 02:30 | disposition home or self-care (01) ==
LOC: ER 00:23
DX: T84.117A Breakdown (mechanical) of internal fixation device of bone of left lower leg, initial encounter (principal); Y79.2 Prosthetic and other implants, materials and accessory orthopedic devices associated with adverse incidents; E11.9 Type 2 diabetes mellitus without complications; E78.5 Hyperlipidemia, unspecified; I10 Essential (primary) hypertension; F17.200 Nicotine dependence, unspecified, uncomplicated; Z79.02 Long term (current) use of antithrombotics/antiplatelets; Z79.82 Long term (current) use of aspirin; Z79.4 Long term (current) use of insulin
CPT/HCPCS: 99282

== ENCOUNTER → 2018-11-23 | Outpatient (CLI) | payer OTHER ==
--- NOTE | 2018-11-23 20:40 | Diagnostic Imaging Report ---
Labeled WBC Study Reason for exam: 68M with swelling of medial aspect of left ankle x several weeks. Had total left hip arthroplasty in August 2018. History of left ankle fusion about 30 years ago with 3 fixating screws, one of which is fractured per recent ankle radiograph. History of right lower leg amputation Comparison: Left ankle radiographs 11/10/2018 Report: The patient's own white blood cells were labeled with Tc-99m HMPAO 22.5 mCi by a commercial radiopharmacy. Images of the left lower leg, ankle and foot in multiple projections were obtained at 3 hours post administration of the autologous labeled white blood cells. Distribution of tracer activity is entirely unremarkable throughout the the left lower leg, ankle and foot. No abnormal accumulation of tracer is present. IMPRESSION: No scan evidence of bone infection in the left ankle or foot. Signed by: Dr. Theodora Richardson M.D. on 11/23/2018 8:36 PM
== END ==
LOC: NM 08:16
PROVIDERS: ATTEND Specialist
DX: M24.672 Ankylosis, left ankle (principal)
CPT/HCPCS: 78806; A9521

== ENCOUNTER 2019-01-11 15:59 | Outpatient (RCR) | payer OTHER | END 2019-01-16 | LOC: PT 15:59 | PROVIDERS: ATTEND Specialist | DX: M54.32 Sciatica, left side (principal) ==

== ENCOUNTER 2019-04-16 11:32 | Inpatient (IN) | payer OTHER ==
[~2019-04-16] VITALS: Ht 177.8 cm; Wt 88.9 kg
[2019-04-16] MEDS ORDERED: PIPER-TAZ 3.375 GM 50 ML IV STA (12:03)
[2019-04-16 12:55] LABS: BASOPHILS # (AUTO) 0.1 (0.0-0.1); BASOPHILS % 0.5 % (0.0-1.0); EOSINOPHILS # (AUTO) 0.2 (0.0-0.4); EOSINOPHILS % 0.8 % (0.0-6.0); HEMATOCRIT 39.3 % (38.2-49.6); HEMOGLOBIN 13.4 g/dL (14.0-18.0); LYMPHOCYTES % 11.2 % (18.0-39.1); MEAN CORPUSCULAR HEMOGLOBIN 29.8 pg (28-32); MEAN CORPUSCULAR HGB CONC 34.1 g/dL (31-35); MEAN CORPUSCULAR VOLUME 87.3 fL (81-99); MONOCYTES # (AUTO) 1.2 (0.2-0.8); MONOCYTES % 6.8 % (4.4-11.3); NEUTROPHILS # (AUTO) 14.3 (2.1-6.9); NEUTROPHILS % 80.2 % (38.7-80.0); PLATELET COUNT 308 x10e3/uL (140-360); RED CELL DISTRIBUTION WIDTH 13.4 % (11.7-14.4)
[2019-04-16 13:17] LABS: ALBUMIN 3.5 g/dL (3.5-5.0); ANION GAP 14.1 mmol/L (8-16); CALCIUM 9.4 mg/dL (8.4-10.2); CREATININE, SERUM 1.45 mg/dL (0.72-1.25); POTASSIUM 3.1 mmol/L (3.5-5.1)
--- NOTE | 2019-04-16 13:36 | Diagnostic Imaging Report ---
EXAMINATION: FOOT LEFT COMPLETE INDICATION: Osteomyelitis COMPARISON: None FINDINGS: No acute fracture or dislocation. Postoperative findings of internal fixation of the distal tibia with threaded screws. Associated chronic post traumatic deformities. Scattered degenerative changes. Soft tissue swelling at the midfoot. No specific radiographic evidence of osteomyelitis. IMPRESSION: No acute osseous injury. Soft tissue swelling of the dorsal foot. No specific radiographic evidence of osteomyelitis. Post traumatic and postoperative changes of the distal tibia. Signed by: Florencia Mosley MD on 04/16/2019 1:33 PM
[2019-04-16] MEDS ORDERED: ONDANSETRON HCL INJ 2MG/ML 2ML 2 MG/ML VIAL IV STA (14:36)
[2019-04-16] MEDS ORDERED: MORPHINE SULFATE 2 MG/ML SYR 1ML IV PRN (14:45)
[2019-04-16] MEDS ORDERED: SODIUM CHLORIDE FLUSH 10 ML SYR INJ PRN (15:15)
[2019-04-16] MEDS: VANCOMYCIN 1GM/NS 250 ML 250 ML IV SCH (16:04)
[2019-04-16] MEDS ORDERED: ACETAMINOPHEN 325 MG TAB PO ONE (16:15)
[2019-04-16] MEDS: PIPER-TAZ 3.375 GM 50 ML IV SCH (23:11)
[2019-04-16] MEDS: ONDANSETRON HCL INJ 2MG/ML 2ML 2 MG/ML VIAL IV PRN (23:30)
[2019-04-16] MEDS: MORPHINE SULFATE 2 MG/ML SYR 1ML IV PRN (23:30)
--- NOTE | 2019-04-17 00:31 | NUR ---
Patient resting with no distress noted. RR even and unlabored. Left foot remains swollen and red. Will continue to monitor patient.
--- NOTE | 2019-04-17 03:32 | NUR ---
Patient placed on hospital bed at this time. Call light at bedside. Instructed patient to call if he needed assistance. Patient verbalized understanding. No distress noted.
[2019-04-17] MEDS: VANCOMYCIN 1GM/NS 250 ML 250 ML IV SCH ×2 (03:41→16:56)
[2019-04-17] MEDS ORDERED: CHLORTHALIDONE25 MG PO (03:43)
[2019-04-17] MEDS: PIPER-TAZ 3.375 GM 50 ML IV SCH ×3 (05:22→21:01)
[2019-04-17 05:24] LABS: BASOPHILS # (AUTO) 0.1 (0.0-0.1); BASOPHILS % 0.5 % (0.0-1.0); EOSINOPHILS # (AUTO) 0.3 (0.0-0.4); EOSINOPHILS % 1.6 % (0.0-6.0); HEMATOCRIT 35.4 % (38.2-49.6); HEMOGLOBIN 11.7 g/dL (14.0-18.0); LYMPHOCYTES % 18.7 % (18.0-39.1); MEAN CORPUSCULAR HEMOGLOBIN 29.3 pg (28-32); MEAN CORPUSCULAR HGB CONC 33.1 g/dL (31-35); MEAN CORPUSCULAR VOLUME 88.7 fL (81-99); MONOCYTES # (AUTO) 1.2 (0.2-0.8); MONOCYTES % 7.4 % (4.4-11.3); NEUTROPHILS # (AUTO) 11.6 (2.1-6.9); NEUTROPHILS % 71.4 % (38.7-80.0); PLATELET COUNT 281 x10e3/uL (140-360); RED BLOOD COUNT 3.99 x10e6/uL (4.3-5.7); RED CELL DISTRIBUTION WIDTH 13.7 % (11.7-14.4)
[2019-04-17 06:40] LABS: ALBUMIN/GLOBULIN RATIO 0.9 (0.8-2.0); ANION GAP 12.2 mmol/L (8-16); CALCIUM 8.7 mg/dL (8.4-10.2); CREATININE, SERUM 1.73 mg/dL (0.72-1.25); POTASSIUM 3.2 mmol/L (3.5-5.1)
--- NOTE | 2019-04-17 06:51 | NUR ---
Report to MIHIR Koch.
[2019-04-17] MEDS ORDERED: POTASSIUM CHLORIDE 20 MEQ TAB CR PO STA (07:18)
[2019-04-17] MEDS: MORPHINE SULFATE 2 MG/ML SYR 1ML IV PRN ×3 (08:01→21:02)
[2019-04-17] MEDS: ONDANSETRON HCL INJ 2MG/ML 2ML 2 MG/ML VIAL IV PRN ×3 (08:01→21:02)
[2019-04-17] MEDS ORDERED: DEXTROSE 50% SYRINGE 50 ML IV PRN (13:00)
--- NOTE | 2019-04-17 16:15 | NUR ---
PT RECEIVED FROM ER. FABRICIO. EDUCATED PT ABOUT FALL PRECAUTIONS. PT VERBALIZED UNDERSTANDING. CALL LIGHT WITH IN EASY REACH. INSTRUCTED PT TO USE CALL LIGHT FOR ALL THE NEEDS. BED IS LOW AND LOCKED. SIDE RAILS X2. BED ALARM IS ON. RAC IV REMOVED DUE TO LEAKING. TIP INTACT. DRESSING APPLIED. PT DENIES NEEDS AT THIS TIME.
[2019-04-17 16:29] VITALS: BP 150/83
[2019-04-17 16:30] VITALS: BP 150/83
--- NOTE | 2019-04-17 16:45 | NUR ---
NEW IV 20 G RIGHT WRIST STARTED. PT DENIED FURTHER NEEDS.
[2019-04-17] MEDS ORDERED: SODIUM CHLORIDE 0.9% 250ML 250 ML ONE (16:58)
--- NOTE | 2019-04-17 17:00 | NUR ---
HOME MEDS CONFIRMED WITH PT. EDUCATED PT ABOUT HOSPITAL POLICY ON HOME MEDS. PT VERBALIZED UNDERSTANDING.
[2019-04-17] MEDS: INSULIN LISPRO 100 UNIT/1 ML 3ML VIAL SQ SCH ×2 (17:15→21:02)
[2019-04-17 18:04] VITALS: BP 150/83
--- NOTE | 2019-04-17 19:00 | NUR ---
BEDSIDE SHIFT REPORT GIVEN TO THE CREATIVE PRODUCER RN. PT DENIED FURTHER NEEDS.
[2019-04-17 20:00] VITALS: BP 125/77
[2019-04-17 21:37] VITALS: BP 125/77
[2019-04-18] VITALS (8 sets, daily range): BP systolic 129–152; BP diastolic 71–83
[2019-04-18] MEDS: ONDANSETRON HCL INJ 2MG/ML 2ML 2 MG/ML VIAL IV PRN ×2 (01:42→21:55)
[2019-04-18] MEDS: MORPHINE SULFATE 2 MG/ML SYR 1ML IV PRN ×4 (01:42→21:55)
[2019-04-18] MEDS: VANCOMYCIN 1GM/NS 250 ML 250 ML IV SCH ×2 (03:08→15:39)
[2019-04-18] MEDS: PIPER-TAZ 3.375 GM 50 ML IV SCH ×3 (05:34→21:54)
[2019-04-18 06:22] LABS: BASOPHILS # (AUTO) 0.1 (0.0-0.1); BASOPHILS % 0.5 % (0.0-1.0); EOSINOPHILS # (AUTO) 0.3 (0.0-0.4); HEMATOCRIT 34.4 % (38.2-49.6); HEMOGLOBIN 10.7 g/dL (14.0-18.0); LYMPHOCYTES # (AUTO) 2.5 (1.0-3.2); LYMPHOCYTES % 19.5 % (18.0-39.1); MEAN CORPUSCULAR HEMOGLOBIN 28.8 pg (28-32); MEAN CORPUSCULAR HGB CONC 31.1 g/dL (31-35); MEAN CORPUSCULAR VOLUME 92.7 fL (81-99); MONOCYTES # (AUTO) 0.9 (0.2-0.8); MONOCYTES % 6.9 % (4.4-11.3); NEUTROPHILS % 70.7 % (38.7-80.0); PLATELET COUNT 251 x10e3/uL (140-360); RED BLOOD COUNT 3.71 x10e6/uL (4.3-5.7); RED CELL DISTRIBUTION WIDTH 13.6 % (11.7-14.4)
[2019-04-18 06:41] LABS: ANION GAP 12.5 mmol/L (8-16); CALCIUM 8.7 mg/dL (8.4-10.2); CREATININE, SERUM 1.63 mg/dL (0.72-1.25); POTASSIUM 3.5 mmol/L (3.5-5.1)
--- NOTE | 2019-04-18 07:00 | NUR ---
BEDSIDE SHIFT REPORT RECEIVED FROM THE ACTIVE DIRECTORY SYSTEMS ADMINISTRATOR RN. EDUCATED PT ABOUT FALL PRECAUTIONS.PT VERBALIZED UNDERSTANDING CALL LIGHT WITH IN EASY REACH. INSTRUCTED PT TO USE CALL LIGHT FOR ALL THE NEEDS. BED IS LOW AND LOCKED. SIDE RAILS X2. BED ALARM IS ON. PT DENIES NEEDS AT THIS TIME.
[2019-04-18] MEDS: INSULIN LISPRO 100 UNIT/1 ML 3ML VIAL SQ SCH ×4 (08:00→21:30)
[2019-04-18] MEDS: POTASSIUM CHLORIDE 10MEQ EA PO SCH (08:13)
--- NOTE | 2019-04-18 12:55 | NUR ---
DR. ROMAN AT BEDSIDE.
[2019-04-18] MEDS: ATENOLOL 50 MG TAB PO SCH (13:29)
[2019-04-18] MEDS: LISINOPRIL 20 MG TAB PO SCH (13:29)
[2019-04-18] MEDS: ASPIRIN 81 MG CHEW TAB PO SCH (13:29)
[2019-04-18] MEDS: CLOPIDOGREL BISULFATE 75 MG TAB PO SCH (13:29)
--- NOTE | 2019-04-18 13:57 | NUR ---
[id number] SEE NOTE will get MRI MAY NEED i AND d
--- NOTE | 2019-04-18 15:35 | NUR ---
vanc trough 19.4. paged dr. levi and informed the same. hold vancomycin as per the
--- NOTE | 2019-04-18 16:30 | NUR ---
PAGED DR. FERNANDEZ REGARDING VANCOMYCIN WHEN TO RESTART. WAITING FOR THE RESPONSE FROM THE
--- NOTE | 2019-04-18 19:00 | NUR ---
BEDSIDE SHIFT REPORT GIVEN TO THE BELL SPINNER RN. PT DENIED FURTHER NEEDS.
[2019-04-18] MEDS ORDERED: PIOGLITAZONE HCL 45 MG TAB PO SCH (21:00)
[2019-04-18] MEDS: PIOGLITAZONE HCL 15 MG TAB PO SCH (21:54)
[2019-04-18] MEDS: ATORVASTATIN 20 MG TAB PO SCH (21:54)
[2019-04-19] VITALS (9 sets, daily range): BP systolic 132–153; BP diastolic 67–92
[2019-04-19] MEDS: PIPER-TAZ 3.375 GM 50 ML IV SCH ×3 (06:00→21:21)
--- NOTE | 2019-04-19 07:00 | NUR ---
RCD PT AT BED PT IS ALERT AND ORIENTED PT RESTING ON BED NO SIGNS OF ANY DISTRESS NOTED IV PATENT BY SALINE FLUSH BED LOW AND LOCKED CALL LIGHT IN REACH
[2019-04-19] MEDS: INSULIN LISPRO 100 UNIT/1 ML 3ML VIAL SQ SCH ×4 (07:30→21:18)
[2019-04-19] MEDS: MORPHINE SULFATE 2 MG/ML SYR 1ML IV PRN ×4 (08:31→23:36)
[2019-04-19] MEDS: ONDANSETRON HCL INJ 2MG/ML 2ML 2 MG/ML VIAL IV PRN ×2 (08:32→14:57)
[2019-04-19] MEDS: ASPIRIN 81 MG CHEW TAB PO SCH (09:00)
[2019-04-19] MEDS: ATENOLOL 50 MG TAB PO SCH (09:00)
[2019-04-19] MEDS: CHLORTHALIDONE 25 MG TAB PO SCH (09:00)
[2019-04-19] MEDS: LISINOPRIL 20 MG TAB PO SCH (09:00)
[2019-04-19] MEDS: POTASSIUM CHLORIDE 10MEQ EA PO SCH (09:00)
[2019-04-19] MEDS: CLOPIDOGREL BISULFATE 75 MG TAB PO SCH (09:00)
--- NOTE | 2019-04-19 09:51 | NUR ---
PAGED AND NOTIFIED THE RANDOM VANCO TROUGH TO BRIANA DINH GOT THE ORDER TO CONTINUE THE SAME
[2019-04-19] MEDS ORDERED: GADOBENATE DIMEGLUMINE 1 ML IV ONE (10:24)
--- NOTE | 2019-04-19 11:20 | Diagnostic Imaging Report ---
TECHNIQUE: Magnetic resonance imaging of left foot was performed without and with injected contrast. 20 cc of MultiHance administered. HISTORY: Pain COMPARISON: None available. DISCUSSION: Bone marrow signal is normal. No fracture or edema. No osteonecrosis. Diffuse subcutaneous swelling and edema and skin thickening. Lobulated fluid collection overlying the dorsal aspect of the lateral forefoot measuring approximately 2.5 x 1 x 2 cm. No sinus tract extending to the underlying bone. IMPRESSION: No osteomyelitis. Cellulitis with 2.5 cm phlegmon/abscess overlying the dorsal lateral forefoot Signed by: Dr. Arturo Humphreys M.D. on 04/19/2019 11:18 AM
[2019-04-19] MEDS: VANCOMYCIN 1GM/NS 250 ML 250 ML IV SCH (14:00)
--- NOTE | 2019-04-19 14:45 | NUR ---
OK TO USE PICC LINE BY CAM
--- NOTE | 2019-04-19 14:47 | Diagnostic Imaging Report ---
Chest, portable AP view History: PICC placement Comparison: 09/11/2018 IMPRESSION: Left upper extremity PICC terminates in excellent position overlying the SVC. The heart is within normal limits size. No focal consolidation, sizable pleural effusion, or pneumothorax. Signed by: Dann Huston MD on 04/19/2019 2:44 PM
--- NOTE | 2019-04-19 18:30 | Consultation ---
DATE OF CONSULTATION: 04/19/2019 CHIEF COMPLAINT: Infection of the foot. HISTORY OF PRESENT ILLNESS: This patient is a very pleasant 68-year-old white male, comes in with redness and swelling of his left foot. No history of specific trauma, started around the second toe. He took some oral antibiotic without any improvement. When he came here to emergency room, his white count was 17.7, hemoglobin 13.4. His sodium 138, potassium 3.5 with creatinine 1.63. The patient was started on IV antibiotic. I was asked to see him. PAST MEDICAL HISTORY: Otherwise significant for hypertension, atherosclerotic disease, and diabetes mellitus. PAST SURGICAL HISTORY: Otherwise denies. ALLERGIES: NKA. SOCIAL HISTORY: There is no smoking, drug abuse, or alcohol abuse. FAMILY HISTORY: Otherwise unremarkable. REVIEW OF SYSTEMS: HEENT: Negative. PULMONARY: Negative. CARDIAC: Negative. : Negative. SKIN: There is no rash. PHYSICAL EXAMINATION: GENERAL: He is currently alert, oriented, does not seem to be in acute distress. VITALS: Stable, currently afebrile. HEENT: Not icteric. NECK: Supple. CHEST: Clear. ABDOMEN: Soft. Bowel sounds present. No tenderness. EXTREMITIES: No edema. On foot, there is erythema. There is edema and induration especially on the second toe. IMPRESSION: 1. Cellulitis of the foot, concerned about abscess, concerned about osteo. I would obtain an MRI of the foot. 2. Hypertension and diabetes mellitus and neuropathy. 3. Concern about vascular disease, recommend vascular workup. 4. Chronic kidney disease, recheck CBC, recheck Chem panel, adjust antibiotic according to them. 5. Diabetes with neuropathy. 6. We will follow with you. MD IBIS Archuleta/MODL /[id number]
--- NOTE | 2019-04-19 18:39 | NUR ---
PT RESTING ON BED BED SIDE REPORT GIVEN TO ONCOMING NURSE
[2019-04-19] MEDS: ATORVASTATIN 20 MG TAB PO SCH (20:43)
[2019-04-19] MEDS: PIOGLITAZONE HCL 15 MG TAB PO SCH (20:43)
[2019-04-20] VITALS (11 sets, daily range): BP systolic 131–171; BP diastolic 72–93
[2019-04-20] MEDS: VANCOMYCIN 1GM/NS 250 ML 250 ML IV SCH ×2 (01:00→14:18)
[2019-04-20] MEDS: PIPER-TAZ 3.375 GM 50 ML IV SCH ×3 (05:11→21:30)
--- NOTE | 2019-04-20 07:15 | NUR ---
bedside report received from nightshift RN, patient denied any needs at this time. FROILAN.
[2019-04-20] MEDS: MORPHINE SULFATE 2 MG/ML SYR 1ML IV PRN ×4 (07:20→21:30)
[2019-04-20] MEDS: INSULIN LISPRO 100 UNIT/1 ML 3ML VIAL SQ SCH ×4 (08:10→21:30)
[2019-04-20] MEDS: LISINOPRIL 20 MG TAB PO SCH (08:47)
[2019-04-20] MEDS: ATENOLOL 50 MG TAB PO SCH (08:47)
[2019-04-20] MEDS: ASPIRIN 81 MG CHEW TAB PO SCH (08:48)
[2019-04-20] MEDS: CLOPIDOGREL BISULFATE 75 MG TAB PO SCH (08:48)
[2019-04-20] MEDS: CHLORTHALIDONE 25 MG TAB PO SCH (08:48)
[2019-04-20] MEDS: POTASSIUM CHLORIDE 10MEQ EA PO SCH (08:48)
--- NOTE | 2019-04-20 09:30 | NUR ---
Spoke with ALLEGRA De Luna. States he is working on getting IV abx set up thru Dr. Arreguin's office.
--- NOTE | 2019-04-20 12:00 | NUR ---
Pt family at bedside. Denies any needs/ concerns at this time. call light within reach, patient instructed to call for assistance ambulating.
--- NOTE | 2019-04-20 15:59 | NUR ---
patient's surgery scheduled for 1230 04/21/2019. patient aware. consent obtained and placed on chart. patient aware of being NPO after midnight. denies any concerns.
--- NOTE | 2019-04-20 19:10 | NUR ---
BS shift report with morning nurse. Pt alert and oriented, lying in bed HOB 60. Denies pain at this time. Call light within reach. Bed locked. Will continue to monitor.
--- NOTE | 2019-04-20 20:08 | Consultation ---
DATE OF CONSULTATION: 04/20/2019 CHIEF COMPLAINT AND HISTORY OF CHIEF COMPLAINT: Mr. Cantrell is a most pleasant 68-year-old gentleman with abscess, cellulitis of the left foot. He apparently was in his normal state of health when he experienced painful swelling of his left foot, admitted through the emergency room. He stated that he had taken some oral antibiotics without improvement. On admission, his white count was elevated to 17.7, it has reduced now since he was started on IV antibiotics. I was asked to see him for possible incision and drainage of the left foot. PREVIOUS MEDICAL HISTORY: Positive for diabetes, atherosclerotic disease, and hypertension. PREVIOUS SURGICAL HISTORY: He has had multiple traumatic procedures and traumatic amputation of the right lower extremity at the knee as well as a fusion of the left ankle. SOCIAL HISTORY: The patient denies smoking or drug or alcohol abuse. REVIEW OF SYSTEMS: Otherwise negative. He does have severe pain to the left lower extremity. PHYSICAL EXAMINATION: EXTREMITIES: Evaluation of lower extremity vascular status, the patient has nonpalpable pedal pulses neither dorsalis pedis nor posterior tibial. The patient does state, however, that ultrasound testing showed adequate circulation to his left lower extremity. NEUROLOGICAL: The patient has early distal peripheral neuropathy with loss of protective sensation of the distal and plantar aspect of the left foot. There is severe pain to palpation in the area of the deep abscess on the dorsal lateral aspect of the left foot. DERMATOLOGICAL: The left lower extremity is red and swollen. MUSCULOSKELETAL: Evaluation is negative with regard to the osteomyelitis. RADIOGRAPHIC DATA: The patient's MRI is positive for an abscess, cellulitis on the dorsal aspect of the left foot. He is status post lower extremity amputation on the right side and wears a prosthesis on the right. He wears a clamshell device on the left, which he currently can get on due to the swelling and abscessing. DIAGNOSIS: Abscess, cellulitis of the left foot. MRI negative for osteomyelitis. He has history of hypertension, diabetes, and neuropathy. Does have some degree of vascular disease, currently in vascular workup. The patient is being treated for chronic renal disease currently as well. What I have recommended is an incision and drainage of the left foot with regard to the dorsal lateral aspect where the large abscess is present that will be packed open and he will be eligible for discharge per Dr. Arreguin's recommendation once the procedure is complete. He will be n.p.o. midnight tonight with I and D to be performed tomorrow if at all possible. GENO Rodriguez/LEYLA /[id number]
[2019-04-20] MEDS: PIOGLITAZONE HCL 15 MG TAB PO SCH (21:30)
[2019-04-20] MEDS: ATORVASTATIN 20 MG TAB PO SCH (21:30)
[2019-04-21] VITALS (10 sets, daily range): BP systolic 110–195; BP diastolic 65–96
[2019-04-21] MEDS: VANCOMYCIN 1GM/NS 250 ML 250 ML IV SCH (04:26)
[2019-04-21] MEDS: PIPER-TAZ 3.375 GM 50 ML IV SCH ×3 (06:00→21:30)
--- NOTE | 2019-04-21 07:10 | NUR ---
patient received from nightshift RN. patient resting in bed, at bedside. patient ready for surgery today. FROILAN.
[2019-04-21] MEDS: INSULIN LISPRO 100 UNIT/1 ML 3ML VIAL SQ SCH ×4 (07:30→21:30)
[2019-04-21] MEDS: MORPHINE SULFATE 2 MG/ML SYR 1ML IV PRN (07:50)
[2019-04-21] MEDS: ASPIRIN 81 MG CHEW TAB PO SCH (08:05)
[2019-04-21] MEDS: CHLORTHALIDONE 25 MG TAB PO SCH (08:06)
[2019-04-21] MEDS: CLOPIDOGREL BISULFATE 75 MG TAB PO SCH (08:06)
[2019-04-21] MEDS: LISINOPRIL 20 MG TAB PO SCH (08:13)
[2019-04-21] MEDS: ATENOLOL 50 MG TAB PO SCH (08:13)
--- NOTE | 2019-04-21 12:10 | NUR ---
patient leaving unit to go to OR.
[2019-04-21] MEDS ORDERED: BACITRACIN 50,000 UNIT VIAL ONE (12:20)
[2019-04-21] MEDS ORDERED: FENTANYL CITRATE/PF 100MCG/2 ML INJ ONE ×2 (13:11→15:32)
[2019-04-21] MEDS ORDERED: ONDANSETRON HCL INJ 2MG/ML 2ML 2 MG/ML VIAL ONE (13:17)
[2019-04-21] MEDS ORDERED: PROMETHAZINE HCL (IM) 25 MG/ML VIAL ONE (13:26)
[2019-04-21] MEDS ORDERED: HYDROMORPHONE 1MG/1ML INJ ONE (13:51)
--- NOTE | 2019-04-21 14:24 | NUR ---
received patient from OR recovery. patient complains of 10/10 pain to foot. patient's blood pressure also elevated. attending paged for further orders. waiting for response at this time.
[2019-04-21] MEDS ORDERED: LIDOCAINE HCL 2% LOCAL INJ 5 ML SDV VIAL INJ ONE (14:25)
[2019-04-21] MEDS ORDERED: SEVOFLURANE INHAL SOLN 250 ML PEN BTL ONE (14:25)
[2019-04-21] MEDS ORDERED: PROPOFOL IV EMULSION 10 MG/ML 20 ML VIAL ONE (14:25)
[2019-04-21] MEDS: VANCOMYCIN 750MG/NS 150ML IVPB 150 ML IV SCH (14:51)
[2019-04-21] MEDS: HYDRALAZINE HCL 25 MG TAB PO SCH ×2 (15:08→21:24)
[2019-04-21] MEDS: HYDROMORPHONE 2MG/ML 2 MG/ML ML IV PRN ×2 (15:08→19:20)
[2019-04-21] MEDS ORDERED: MIDAZOLAM HCL 2 MG/2 ML VIAL ONE (15:32)
--- NOTE | 2019-04-21 15:52 | NUR ---
Per Sonja at Dr. Arreguin's office, IV abx is set up. Pt accepted copay. Medications will be delivered to his house. Pt will receive teaching in office. If pt discharges tomorrow, can come to office at 10am. Will update office if pt does not dc. [address] [place] [address]
[2019-04-21] MEDS: HYDROCODONE/APAP 5MG-325MG TAB PO PRN ×2 (17:15→21:20)
--- NOTE | 2019-04-21 19:10 | NUR ---
Bedside nursing shift report completed with morning nurse and Pt. Pt alert and oriented to name, lying in bed HOB 45 degrees. c/o 5/10 left foot pain at this time. Family at bedside. Call light within reach. Will continue to monitor.
--- NOTE | 2019-04-21 19:34 | Operative Report ---
DATE OF PROCEDURE: 04/21/2019 SURGEON: Balaji Romero DPM PREOPERATIVE DIAGNOSIS: Abscess cellulitis of the left foot. POSTOPERATIVE DIAGNOSIS: Abscess cellulitis of the left foot. TITLE OF THE OPERATION: Incision and drainage abscess, left foot. ANESTHESIA: General endotracheal. HEMOSTASIS: None used. PROCEDURE IN DETAIL: The patient was taken to the operating room in a mildly sedated state and placed on the operating table in supine position. Following induction of general anesthetic, the left lower extremity was prepped and draped in aseptic manner utilizing Betadine prep, placed on the operating table prior to performing following procedure. Procedure #1: The incision and drainage of the left foot without the use of a tourniquet. The left foot was evaluated and noted to be extremely erythematous. There was a very large bullous lesion on the dorsal lateral aspect of the left foot overlying the 4th and 5th metatarsal bases and extending down midshaft towards the 4th intermetatarsal space. This incision was placed through the skin and subcutaneous tissue, deepened via sharp and blunt dissection down to the level of the multiple dorsal and plantar spaces of the left foot utilizing a hemostat and ultimately a Metzenbaum scissors. All quadrants of the foot were opened and all deep spaces explored. Significant purulent exudate was extruded from the wound and significant areas of infection were noted. Deep wound culture and sensitivity were obtained. The area was irrigated with bacitracin solution utilizing a Simpulse system to fully irrigate and suction all deep tissues. The area was then packed open with 0.5 half-inch iodoform gauze. The foot redness was noted to decrease tremendously with the opening and drainage. The wound itself was approximately 4 cm on the dorsum of the foot and was packed open as previously stated. The appropriate mildly compressive dressings were applied. No tourniquet was used and the patient tolerated both anesthetic and procedure very well. Return to see me within 1-week postoperatively after discharge from the hospital. He will, however, return to the floor today and remain at least overnight or until Dr. Hernadez is comfortable with discharge and discharge planning has been fully accomplished. Deep wound culture and sensitivity were obtained today and he may want to wait until the culture results are back prior to discharge, however, this is in the hands of Infectious Disease and Medicine at this point. I will follow the wound accordingly. Balaji GENO Romero /[id number]
[2019-04-21] MEDS: PIOGLITAZONE HCL 15 MG TAB PO SCH (21:23)
[2019-04-21] MEDS: ATORVASTATIN 20 MG TAB PO SCH (21:24)
[2019-04-22] VITALS: BP 118/76
[2019-04-22] MEDS: HYDROMORPHONE 2MG/ML 2 MG/ML ML IV PRN
[2019-04-22] MEDS: VANCOMYCIN 750MG/NS 150ML IVPB 150 ML IV SCH (02:00)
[2019-04-22] MEDS: HYDROCODONE/APAP 5MG-325MG TAB PO PRN ×2 (03:15→09:58)
[2019-04-22 04:00] VITALS: BP 129/78
[2019-04-22] MEDS: PIPER-TAZ 3.375 GM 50 ML IV SCH (05:30)
[2019-04-22] MEDS: CHLORTHALIDONE 25 MG TAB PO SCH (08:26)
[2019-04-22] MEDS: CLOPIDOGREL BISULFATE 75 MG TAB PO SCH (08:26)
[2019-04-22] MEDS: ASPIRIN 81 MG CHEW TAB PO SCH (08:26)
[2019-04-22] MEDS: LISINOPRIL 20 MG TAB PO SCH (08:27)
[2019-04-22] MEDS: HYDRALAZINE HCL 25 MG TAB PO SCH (08:27)
[2019-04-22] MEDS: ATENOLOL 50 MG TAB PO SCH (08:27)
[2019-04-22 08:41] VITALS: BP 169/84
[2019-04-22 08:47] VITALS: BP 169/84
[2019-04-22] MEDS: INSULIN LISPRO 100 UNIT/1 ML 3ML VIAL SQ SCH ×2 (10:57→11:30)
[2019-04-22 12:23] VITALS: BP 166/92
--- NOTE | 2019-04-22 14:02 | NUR ---
Spoke to pt at bedside regarding home health. Informed pt that home health for his insurance is usually set up thru [facility] and that they will assign the home health company once they receive the referral. Pt is agreeable. Choice letter signed for [facility]. Signed copy placed in chart. Copy to pt. CM called [facility] at [phone] and spoke with [place]. Gave him pt information and reason for home health. [facility] home health is approved for [facility], intake ID #[id number]. Asked that clinicals be faxed to [facility]. Clinicals were faxed to [phone] Carol Connelly with [facility] was informed of referral and dc for today. REYNA informed Edwige with Dr. Arreguin's office that pt has not discharged yet. She states that pt can come into the office tomorrow after 10 if discharged today. [address] [place] [address] Information given to pt. Addendum: 04/22/19 at 1437 by Jessica Balderrama CM Home health and Dr. Arreguin's office appointment information printed and given to pt.
--- NOTE | 2019-04-22 16:24 | NUR ---
Nutrition Screen Note RD Recommendation for Physician: -Continue current diet as ordered Plan of Care: RD following, monitoring for tolerance and adequacy Nutrition reason for involvement: Length of stay Primary Diagnose(s): cellulitis and abscess of foot, diabetes PMH: diabetes, HTN, atherosclerotic disease Ht: 70 in Wt:196 lb BMI: 28.1kg/m2 IBW: [address] Assessment: (04/21) Chart reviewed. Labs and meds reviewed. Pt is a 68 year old male admitted with cellulitis and abscess of foot as well as diabetes. Pt reports he has been eating about 50% of meals during admission due to pain. However, it is recorded that pt has been consuming 75-100% of meals in chart since 04/19. No weight loss reported and no N/V/D/C or chewing/swallowing issues. Will continue to monitor. Current Diet: 1800 kcal ADA Malnutrition Evaluation (04/22/19) The patient does not meet criteria for a specified degree of malnutrition at this time. Will re-evaluate at follow-up as appropriate. Diet Education Needs Assessment: Diet education indicated pt was interested in diabetic diet education materials Learner(s): pt Barriers: No barriers identified Cultural/Language Modifications: No cultural/language modifications Readiness: Eager, acceptance Method: Explanation/discussion/handouts Topics: Carbohydrate counting,, Reading the nutrition label Understanding/Compliance: pt verbalized understanding and was willing to comply with dietary recommendations Nutrition Care Level: low Signed: Liliana Lucas, RD, LD
== END 2019-04-22 16:24 | disposition home or self-care (01) | DRG 603 ==
LOC: ER 11:32 → ERHOLD 15:04 → MED/SURG2 04-17 16:05
PROC: 0J9R0ZX Drainage of Left Foot Subcutaneous Tissue and Fascia, Open Approach, Diagnostic (ICD-10-PCS; principal; 2019-04-21 12:24)
DX: L02.612 Cutaneous abscess of left foot (principal); L03.116 Cellulitis of left lower limb; E11.65 Type 2 diabetes mellitus with hyperglycemia; Z88.5 Allergy status to narcotic agent; Z88.8 Allergy status to other drugs, medicaments and biological substances; E11.22 Type 2 diabetes mellitus with diabetic chronic kidney disease; I12.9 Hypertensive chronic kidney disease with stage 1 through stage 4 chronic kidney disease, or unspecified chronic kidney disease; N18.9 Chronic kidney disease, unspecified; E11.42 Type 2 diabetes mellitus with diabetic polyneuropathy; Z89.511 Acquired absence of right leg below knee; E11.51 Type 2 diabetes mellitus with diabetic peripheral angiopathy without gangrene; Z79.4 Long term (current) use of insulin; E78.5 Hyperlipidemia, unspecified; D72.829 Elevated white blood cell count, unspecified; D64.9 Anemia, unspecified
CPT/HCPCS: 36415; 36569; 80048; 80053; 80202; 82948; 83605; 85025; 87040; 87071; 87075; 87186; 87205; 93926; 99284; J1170; J2001; J2250; J2270; J2405; J2543; J2550; J3010; J3370; J7050

== ENCOUNTER 2021-05-24 19:05 | Emergency (ER) | payer MEDICARE, OTHER ==
[~2021-05-24] VITALS: Ht 177.8 cm; Wt 85.7 kg
[2021-05-24] MEDS ORDERED: SODIUM CHLORIDE 0.9% 1000ML 1,000 ML IV STA (19:15)
[2021-05-24 19:31] LABS: BASOPHILS # (AUTO) 0.1 (0.0-0.1); BASOPHILS % 1.1 % (0.0-1.0); EOSINOPHILS # (AUTO) 0.5 (0.0-0.4); EOSINOPHILS % 3.6 % (0.0-6.0); HEMATOCRIT 41.2 % (38.2-49.6); HEMOGLOBIN 13.6 g/dL (14.0-18.0); LYMPHOCYTES # (AUTO) 3.7 (1.0-3.2); MEAN CORPUSCULAR HEMOGLOBIN 30.2 pg (28-32); MEAN CORPUSCULAR VOLUME 91.4 fL (81-99); MONOCYTES # (AUTO) 0.7 (0.2-0.8); MONOCYTES % 5.7 % (4.4-11.3); NEUTROPHILS # (AUTO) 7.3 (2.1-6.9); NEUTROPHILS % 59.3 % (38.7-80.0); PLATELET COUNT 368 x10e3/uL (140-360); RED BLOOD COUNT 4.51 x10e6/uL (4.3-5.7); RED CELL DISTRIBUTION WIDTH 13.3 % (11.7-14.4)
[2021-05-24 19:53] LABS: ALBUMIN 3.7 g/dL (3.5-5.0); ANION GAP 13.3 mmol/L (8-16); CALCIUM 8.8 mg/dL (8.4-10.2); CREATININE, SERUM 1.84 mg/dL (0.72-1.25); POTASSIUM 4.3 mmol/L (3.5-5.1)
[2021-05-24] MEDS ORDERED: IOPAMIDOL 370 MG/ML 200 ML INFUS..BTL INJ ONE (20:12)
[2021-05-24] MEDS ORDERED: SODIUM CHLORIDE 0.9% 50ML 50 ML ONE (20:12)
[2021-05-24 20:47] LABS: CLARITY,URINE SL CLOUDY (CLEAR); COLOR,URINE YELLOW (YELLOW); KETONES,URINE NEGATIVE (NEGATIVE); LEUKOCYTE ESTERASE ,URINE NEGATIVE (NEGATIVE); NITRITE,URINE NEGATIVE (NEGATIVE); PROTEIN,URINE DIPSTICK >=300 (NEGATIVE); URINE UROBILINOGEN 0.2 mg/dL (0.2 - 1)
[2021-05-24 20:53] LABS: AMORPHOUS SEDIMENT,URINE FEW (FEW); RBC,URINE 0-5 /HPF (0-5)
[2021-05-24] MEDS ORDERED: KETOROLAC TROMETHAMINE 30 MG/ML VIAL IV STA (21:15)
[2021-05-24] MEDS ORDERED: Morphine 4mg Syringe 4 MG/ML INJ IV STA (22:10)
[2021-05-24] MEDS ORDERED: ONDANSETRON HCL INJ 2MG/ML 2ML 2 MG/ML VIAL IV STA (22:10)
[2021-05-24] MEDS ORDERED: ULTRAM 50MG50 MG PO (22:22)
[2021-05-24] MEDS ORDERED: ONDANSETRON ODT4 MG PO (22:22)
[2021-05-24 22:50] VITALS: BP 166/82
== END 2021-05-24 23:18 | disposition home or self-care (01) ==
LOC: ER 19:10
DX: R10.31 Right lower quadrant pain (principal); I10 Essential (primary) hypertension; E11.65 Type 2 diabetes mellitus with hyperglycemia; E78.5 Hyperlipidemia, unspecified; Z87.442 Personal history of urinary calculi; Z89.611 Acquired absence of right leg above knee; F17.210 Nicotine dependence, cigarettes, uncomplicated
CPT/HCPCS: 36415; 74177; 80053; 81001; 83690; 85025; 93005; 99284; J1885; J2270; J2405; J7030; Q9967

== ENCOUNTER 2022-01-04 03:17 | Emergency (ER) | payer MEDICARE, OTHER ==
[~2022-01-04] VITALS: Ht 177.8 cm; Wt 85.7 kg
[~2022-01-04 03:17] MED LIST changes: +ONDANSETRON ODT4 MG PO; +ULTRAM 50MG50 MG PO
[2022-01-04 04:05] LABS: CLARITY,URINE SL CLOUDY (CLEAR); COLOR,URINE YELLOW (YELLOW); LEUKOCYTE ESTERASE ,URINE NEGATIVE (NEGATIVE); NITRITE,URINE NEGATIVE (NEGATIVE)
[2022-01-04 04:06] LABS: KETONES,URINE NEGATIVE (NEGATIVE); PROTEIN,URINE DIPSTICK 2+ (NEGATIVE); URINE UROBILINOGEN 0.2 mg/dL (0.2 - 1)
[2022-01-04] MEDS ORDERED: FLOMAX0.4 MG PO (04:15)
[2022-01-04 04:17] LABS: BACTERIA,URINE FEW /HPF; EPITHELIAL CELLS,URINE FEW /LPF; TRANSITIONAL EPI CELLS,URINE FEW; WBC,URINE (MAN) >50 /HPF (0-5)
[2022-01-04 04:33] VITALS: BP 149/68
== END 2022-01-04 04:24 | disposition home or self-care (01) ==
LOC: ER 03:21
DX: R33.9 Retention of urine, unspecified (principal); I10 Essential (primary) hypertension; E11.9 Type 2 diabetes mellitus without complications; E78.5 Hyperlipidemia, unspecified; M54.9 Dorsalgia, unspecified; G89.29 Other chronic pain; Z89.611 Acquired absence of right leg above knee; Z96.642 Presence of left artificial hip joint
CPT/HCPCS: 51700; 81001; 87086; 99284

== ENCOUNTER 2022-01-20 15:02 | Emergency (ER) | payer MEDICARE, OTHER ==
[~2022-01-20] VITALS: Ht 177.8 cm; Wt 85.7 kg
[~2022-01-20 15:02] MED LIST changes: +FLOMAX0.4 MG PO
[2022-01-20 16:24] LABS: CLARITY,URINE HAZY (CLEAR); COLOR,URINE YELLOW (YELLOW); LEUKOCYTE ESTERASE ,URINE TRACE (NEGATIVE); NITRITE,URINE POSITIVE (NEGATIVE); PROTEIN,URINE DIPSTICK >=300 (NEGATIVE)
[2022-01-20 16:25] LABS: KETONES,URINE NEGATIVE (NEGATIVE); URINE UROBILINOGEN 0.2 mg/dL (0.2 - 1); WBC,URINE (MAN) 21-50 /HPF (0-5)
[2022-01-20 16:26] LABS: AMORPHOUS SEDIMENT,URINE FEW (FEW); BACTERIA,URINE MODERATE /HPF; EPITHELIAL CELLS,URINE FEW /LPF; MUCUS,URINE FEW (RARE)
[2022-01-20] MEDS ORDERED: CEFDINIR300 MG PO (16:44)
[2022-01-24] MEDS ORDERED: AMLODIPINE-BEN1 EAC5 (20:33)
[2022-01-24] MEDS ORDERED: LOSARTAN POTASS25 MG PO (20:33)
[2022-01-24] MEDS ORDERED: NOVOLIN R100 UNIT/1 (20:40)
== END 2022-01-20 17:10 | disposition home or self-care (01) ==
LOC: ER 15:09
DX: R30.0 Dysuria (principal); N39.0 Urinary tract infection, site not specified; R33.9 Retention of urine, unspecified; R10.32 Left lower quadrant pain; I10 Essential (primary) hypertension; E11.9 Type 2 diabetes mellitus without complications; E78.5 Hyperlipidemia, unspecified; M54.9 Dorsalgia, unspecified; G89.29 Other chronic pain; Z89.611 Acquired absence of right leg above knee; Z96.642 Presence of left artificial hip joint; Z95.5 Presence of coronary angioplasty implant and graft; F17.210 Nicotine dependence, cigarettes, uncomplicated
CPT/HCPCS: 51700; 81001; 87086; 87186; 99283

== ENCOUNTER 2022-03-21 20:29 | Emergency (ER) | payer MEDICARE, OTHER ==
[~2022-03-21] VITALS: Ht 208.3 cm; Wt 86.2 kg
[~2022-03-21 20:29] MED LIST changes: +AMLODIPINE-BEN1 EAC5; +CEFDINIR300 MG PO; +LOSARTAN POTASS25 MG PO; +MERREM IV; +NOVOLIN R100 UNIT/1
[2022-03-21] MEDS ORDERED: LIDOCAINE JELLY 2% 10ML URO-JET TOP ONE (21:30)
[2022-03-21 21:58] LABS: CLARITY,URINE CLEAR (CLEAR); COLOR,URINE YELLOW (YELLOW)
[2022-03-21 21:59] LABS: KETONES,URINE NEGATIVE (NEGATIVE); LEUKOCYTE ESTERASE ,URINE NEGATIVE (NEGATIVE); NITRITE,URINE NEGATIVE (NEGATIVE); PROTEIN,URINE DIPSTICK >=300 (NEGATIVE); URINE UROBILINOGEN 0.2 mg/dL (0.2 - 1)
[2022-03-21 22:04] LABS: BACTERIA,URINE FEW /HPF; EPITHELIAL CELLS,URINE RARE /LPF; RBC,URINE 0-5 /HPF (0-5)
[2022-03-21] MEDS ORDERED: CEFDINIR300 MG PO (22:21)
[2022-03-21 22:37] VITALS: BP 169/69
== END 2022-03-21 22:38 | disposition home or self-care (01) ==
LOC: ER 20:35
DX: R10.30 Lower abdominal pain, unspecified (principal); N39.0 Urinary tract infection, site not specified; R33.9 Retention of urine, unspecified; I10 Essential (primary) hypertension; E11.9 Type 2 diabetes mellitus without complications; E78.5 Hyperlipidemia, unspecified; M54.9 Dorsalgia, unspecified; G89.29 Other chronic pain; Z89.611 Acquired absence of right leg above knee; Z95.5 Presence of coronary angioplasty implant and graft; F17.210 Nicotine dependence, cigarettes, uncomplicated
CPT/HCPCS: 51700; 81001; 87086; 99283

== ENCOUNTER 2023-01-24 05:00 | Inpatient (IN) | payer MEDICARE, OTHER ==
[~2023-01-24] VITALS: Ht 208.3 cm; Wt 86.2 kg
[~2023-01-24 05:00] MED LIST changes: -AMLODIPINE-BEN1 EAC5; +AMLODIPINE-BEN1 EAC5 PO
[2023-01-24 06:12] LABS: BASOPHILS # (AUTO) 0.1 (0.0-0.1); BASOPHILS % 0.9 % (0.0-1.0); EOSINOPHILS # (AUTO) 0.5 (0.0-0.4); EOSINOPHILS % 3.7 % (0.0-6.0); HEMATOCRIT 36.4 % (38.2-49.6); HEMOGLOBIN 11.9 g/dL (14.0-18.0); LYMPHOCYTES # (AUTO) 4.7 (1.0-3.2); LYMPHOCYTES % 34.7 % (18.0-39.1); MEAN CORPUSCULAR HEMOGLOBIN 29.8 pg (28-32); MEAN CORPUSCULAR HGB CONC 32.7 g/dL (31-35); MEAN CORPUSCULAR VOLUME 91.2 fL (81-99); MONOCYTES % 7.3 % (4.4-11.3); NEUTROPHILS # (AUTO) 7.2 (2.1-6.9); PLATELET COUNT 321 x10e3/uL (140-360); RED BLOOD COUNT 3.99 x10e6/uL (4.3-5.7); RED CELL DISTRIBUTION WIDTH 13.4 % (11.7-14.4); WHITE BLOOD COUNT 13.64 x10e3/uL (4.8-10.8)
[2023-01-24 06:44] LABS: TROPONIN I < 0.001 ng/mL (0-0.300)
[2023-01-24 06:51] LABS: ALBUMIN 3.7 g/dL (3.5-5.0); ALBUMIN/GLOBULIN RATIO 1.1 (0.8-2.0); ANION GAP 13.7 mmol/L (8-16); BILIRUBIN,TOTAL 0.4 mg/dL (0.2-1.2); CALCIUM 9.1 mg/dL (8.4-10.2); CREATININE, SERUM 1.78 mg/dL (0.72-1.25); POTASSIUM 4.7 mmol/L (3.5-5.1); TOTAL PROTEIN 7.2 g/dL (6.5-8.1)
[2023-01-24 06:56] LABS: CREATINE KINASE 55 IU/L (30-200)
[2023-01-24] MEDS: ONDANSETRON HCL INJ 2MG/ML 2ML 2 MG/ML VIAL IV PRN ×2 (08:33→13:33)
[2023-01-24] MEDS: Morphine 4mg INJECTION 4 MG/ML INJ IV PRN ×3 (08:34→20:21)
[2023-01-24] MEDS: SODIUM CHLORIDE 0.9% 1000ML 1,000 ML IV SCH ×2 (08:34→17:15)
[2023-01-24 13:50] VITALS: BP 129/69; PULSE 66; RESP 18; TEMP 97.7; O2SAT 95
[2023-01-24 15:31] LABS: CREATINE KINASE 42 IU/L (30-200)
[2023-01-24 15:38] LABS: TROPONIN I < 0.001 ng/mL (0-0.300)
[2023-01-24 16:21] VITALS: BP 147/70; PULSE 56; RESP 19; TEMP 97.8; O2SAT 96
[2023-01-24] MEDS ORDERED: DEXTROSE 50% SYRINGE 50 ML IV PRN (18:00)
[2023-01-24] MEDS: TRAMADOL HCL 50 MG TAB PO SCH (18:34)
[2023-01-24] MEDS: ATORVASTATIN 40 MG TAB PO SCH (20:14)
[2023-01-24] MEDS: INSULIN LISPRO 100 UNIT/1 ML 3ML VIAL SQ SCH (21:00)
[2023-01-24 21:35] VITALS: BP 125/74; PULSE 56; RESP 18; TEMP 98; O2SAT 97
[2023-01-25] VITALS (9 sets, daily range): BP systolic 113–129; BP diastolic 61–74; PULSE 56–66; RESP 18–20; TEMP 97.3–98.1; O2SAT 94–99
[2023-01-25] MEDS: SODIUM CHLORIDE 0.9% 1000ML 1,000 ML IV SCH ×4 (00:12→23:46)
[2023-01-25] MEDS: TRAMADOL HCL 50 MG TAB PO SCH ×5 (00:13→23:46)
[2023-01-25] MEDS: Morphine 4mg INJECTION 4 MG/ML INJ IV PRN ×4 (02:15→21:11)
[2023-01-25 06:14] LABS: BASOPHILS # (AUTO) 0.1 (0.0-0.1); EOSINOPHILS # (AUTO) 0.4 (0.0-0.4); EOSINOPHILS % 3.4 % (0.0-6.0); HEMATOCRIT 31.7 % (38.2-49.6); HEMOGLOBIN 10.1 g/dL (14.0-18.0); LYMPHOCYTES # (AUTO) 2.6 (1.0-3.2); LYMPHOCYTES % 24.5 % (18.0-39.1); MEAN CORPUSCULAR HEMOGLOBIN 30.3 pg (28-32); MEAN CORPUSCULAR HGB CONC 31.9 g/dL (31-35); MEAN CORPUSCULAR VOLUME 95.2 fL (81-99); MONOCYTES # (AUTO) 0.9 (0.2-0.8); MONOCYTES % 8.3 % (4.4-11.3); NEUTROPHILS # (AUTO) 6.5 (2.1-6.9); NEUTROPHILS % 62.5 % (38.7-80.0); PLATELET COUNT 265 x10e3/uL (140-360); RED BLOOD COUNT 3.33 x10e6/uL (4.3-5.7); RED CELL DISTRIBUTION WIDTH 13.5 % (11.7-14.4); WHITE BLOOD COUNT 10.45 x10e3/uL (4.8-10.8)
[2023-01-25 06:32] LABS: ALBUMIN 2.8 g/dL (3.5-5.0); BILIRUBIN,TOTAL 0.7 mg/dL (0.2-1.2); CALCIUM 8.2 mg/dL (8.4-10.2); CREATININE, SERUM 1.81 mg/dL (0.72-1.25); TOTAL PROTEIN 5.6 g/dL (6.5-8.1)
[2023-01-25] MEDS: INSULIN LISPRO 100 UNIT/1 ML 3ML VIAL SQ SCH ×4 (07:30→21:00)
[2023-01-25] MEDS: ATENOLOL 50 MG TAB PO SCH (09:00)
[2023-01-25] MEDS: CLOPIDOGREL BISULFATE 75 MG TAB PO SCH (09:16)
[2023-01-25] MEDS: LOSARTAN POTASSIUM 25 MG TAB PO SCH (09:16)
[2023-01-25] MEDS: ASPIRIN 81 MG CHEW TAB PO SCH (09:16)
[2023-01-25] MEDS ORDERED: SOD POLYSTYRENE SULFONATE SUSP 15 GM/60 ML BTL PO ONE (13:45)
[2023-01-25] MEDS: ATORVASTATIN 40 MG TAB PO SCH (21:12)
[2023-01-26] VITALS (8 sets, daily range): BP systolic 134–160; BP diastolic 67–87; PULSE 51–68; RESP 18–20; TEMP 97.5–97.9; O2SAT 97–99
[2023-01-26] MEDS: Morphine 4mg INJECTION 4 MG/ML INJ IV PRN ×3 (02:56→20:29)
[2023-01-26] MEDS: TRAMADOL HCL 50 MG TAB PO SCH ×2 (06:36→12:15)
[2023-01-26] MEDS: INSULIN LISPRO 100 UNIT/1 ML 3ML VIAL SQ SCH ×4 (07:30→21:00)
[2023-01-26 07:48] LABS: BASOPHILS # (AUTO) 0.1 (0.0-0.1); BASOPHILS % 1.2 % (0.0-1.0); EOSINOPHILS # (AUTO) 0.5 (0.0-0.4); HEMATOCRIT 30.9 % (38.2-49.6); HEMOGLOBIN 9.8 g/dL (14.0-18.0); LYMPHOCYTES # (AUTO) 2.8 (1.0-3.2); LYMPHOCYTES % 30.3 % (18.0-39.1); MEAN CORPUSCULAR HEMOGLOBIN 29.8 pg (28-32); MEAN CORPUSCULAR HGB CONC 31.7 g/dL (31-35); MEAN CORPUSCULAR VOLUME 93.9 fL (81-99); MONOCYTES # (AUTO) 0.8 (0.2-0.8); MONOCYTES % 8.1 % (4.4-11.3); NEUTROPHILS # (AUTO) 5.2 (2.1-6.9); NEUTROPHILS % 55.2 % (38.7-80.0); PLATELET COUNT 266 x10e3/uL (140-360); RED BLOOD COUNT 3.29 x10e6/uL (4.3-5.7); RED CELL DISTRIBUTION WIDTH 13.5 % (11.7-14.4); WHITE BLOOD COUNT 9.36 x10e3/uL (4.8-10.8)
[2023-01-26 08:02] LABS: ANION GAP 11.7 mmol/L (8-16); CALCIUM 8.3 mg/dL (8.4-10.2); CREATININE, SERUM 1.68 mg/dL (0.72-1.25); POTASSIUM 4.7 mmol/L (3.5-5.1)
[2023-01-26 08:25] LABS: TROPONIN I 0.003 ng/mL (0-0.300)
[2023-01-26] MEDS: CLOPIDOGREL BISULFATE 75 MG TAB PO SCH (08:46)
[2023-01-26] MEDS: ASPIRIN 81 MG CHEW TAB PO SCH (08:46)
[2023-01-26] MEDS: ATENOLOL 50 MG TAB PO SCH (08:47)
[2023-01-26] MEDS: LOSARTAN POTASSIUM 25 MG TAB PO SCH (08:47)
[2023-01-26] MEDS: SODIUM CHLORIDE 0.9% 1000ML 1,000 ML IV SCH (08:48)
[2023-01-26] MEDS: SODIUM BICARBONATE 650 MG TAB PO SCH (12:15)
[2023-01-26] MEDS ORDERED: TRAMADOL HCL 50 MG TAB PO PRN (16:30)
[2023-01-26] MEDS: Vancomycin IV 1 GM in SODIUM CHLORIDE 0.9% 250ML 250 ML IV SCH (17:03)
[2023-01-26] MEDS: ATORVASTATIN 40 MG TAB PO SCH (20:29)
[2023-01-27] VITALS (8 sets, daily range): BP systolic 133–159; BP diastolic 66–97; PULSE 56–62; RESP 18–20; TEMP 97.4–98.4; O2SAT 97–99
[2023-01-27] MEDS: Morphine 4mg INJECTION 4 MG/ML INJ IV PRN ×6 (01:12→22:31)
[2023-01-27 07:20] LABS: CLARITY,URINE CLEAR (CLEAR); COLOR,URINE YELLOW (YELLOW); GLUCOSE, URINE NEGATIVE (NEGATIVE); KETONES,URINE NEGATIVE (NEGATIVE); LEUKOCYTE ESTERASE ,URINE NEGATIVE (NEGATIVE); NITRITE,URINE NEGATIVE (NEGATIVE); PH,URINE 5.5 (5 - 7); PROTEIN,URINE DIPSTICK 2+ (NEGATIVE)
[2023-01-27 07:21] LABS: BILIRUBIN,URINE NEGATIVE (NEGATIVE); URINE UROBILINOGEN 0.2 mg/dL (0.2 - 1)
[2023-01-27 07:30] LABS: BASOPHILS # (AUTO) 0.1 (0.0-0.1); BASOPHILS % 0.9 % (0.0-1.0); EOSINOPHILS # (AUTO) 0.5 (0.0-0.4); EOSINOPHILS % 5.1 % (0.0-6.0); HEMATOCRIT 30.1 % (38.2-49.6); HEMOGLOBIN 9.9 g/dL (14.0-18.0); LYMPHOCYTES # (AUTO) 2.5 (1.0-3.2); MEAN CORPUSCULAR HGB CONC 32.9 g/dL (31-35); MEAN CORPUSCULAR VOLUME 91.2 fL (81-99); MONOCYTES # (AUTO) 0.8 (0.2-0.8); MONOCYTES % 8.8 % (4.4-11.3); NEUTROPHILS # (AUTO) 5.1 (2.1-6.9); NEUTROPHILS % 56.9 % (38.7-80.0); PLATELET COUNT 256 x10e3/uL (140-360); RED CELL DISTRIBUTION WIDTH 13.3 % (11.7-14.4); WHITE BLOOD COUNT 8.98 x10e3/uL (4.8-10.8)
[2023-01-27 07:39] LABS: BACTERIA,URINE RARE /HPF; RBC,URINE 0-5 /HPF (0-5)
[2023-01-27 07:55] LABS: ANION GAP 13.4 mmol/L (8-16); CALCIUM 8.4 mg/dL (8.4-10.2); CREATININE, SERUM 1.55 mg/dL (0.72-1.25); MAGNESIUM 1.2 MG/DL (1.3-2.1); POTASSIUM 4.4 mmol/L (3.5-5.1)
[2023-01-27 08:22] LABS: FERRITIN 71.69 ng/mL (21.81-274.66)
[2023-01-27 08:24] LABS: CREATININE,URINE RANDOM 57.68 mg/dL (63-166); TOTAL PROTEIN, URINE 78.4 mg/dL (1-14)
[2023-01-27] MEDS: INSULIN LISPRO 100 UNIT/1 ML 3ML VIAL SQ SCH ×4 (08:55→20:44)
[2023-01-27] MEDS: LOSARTAN POTASSIUM 25 MG TAB PO SCH (09:58)
[2023-01-27] MEDS: Vancomycin IV 1 GM in SODIUM CHLORIDE 0.9% 250ML 250 ML IV SCH (09:58)
[2023-01-27] MEDS: ASPIRIN 81 MG CHEW TAB PO SCH (09:59)
[2023-01-27] MEDS: CLOPIDOGREL BISULFATE 75 MG TAB PO SCH (09:59)
[2023-01-27] MEDS: ATENOLOL 50 MG TAB PO SCH (09:59)
[2023-01-27] MEDS: SODIUM BICARBONATE 650 MG TAB PO SCH (09:59)
[2023-01-27] MEDS ORDERED: MAGNESIUM SULFATE 2GM/50ML 50 ML IV ONE ×2 (10:00→12:00)
[2023-01-27] MEDS ORDERED: IRON SUCROSE 100 MG in SODIUM CHLORIDE 0.9% 100 ML IV SCH (16:00)
[2023-01-27] MEDS: ONDANSETRON HCL 4 MG ORAL DISINTEGRATING TAB PO PRN (20:36)
[2023-01-27] MEDS: ATORVASTATIN 40 MG TAB PO SCH (20:36)
[2023-01-27] MEDS: IRON SUCROSE 100 MG in SODIUM CHLORIDE 0.9% 100 ML IV SCH (20:40)
[2023-01-28] VITALS (8 sets, daily range): BP systolic 141–161; BP diastolic 63–75; PULSE 52–66; RESP 18–19; TEMP 98–98.5; O2SAT 95–98
[2023-01-28] MEDS: Morphine 4mg INJECTION 4 MG/ML INJ IV PRN ×5 (03:08→22:47)
[2023-01-28 05:48] LABS: BASOPHILS # (AUTO) 0.1 (0.0-0.1); BASOPHILS % 0.7 % (0.0-1.0); EOSINOPHILS # (AUTO) 0.4 (0.0-0.4); EOSINOPHILS % 4.4 % (0.0-6.0); HEMATOCRIT 32.1 % (38.2-49.6); HEMOGLOBIN 10.6 g/dL (14.0-18.0); LYMPHOCYTES # (AUTO) 2.4 (1.0-3.2); LYMPHOCYTES % 26.5 % (18.0-39.1); MEAN CORPUSCULAR VOLUME 90.9 fL (81-99); MONOCYTES # (AUTO) 0.8 (0.2-0.8); MONOCYTES % 8.5 % (4.4-11.3); NEUTROPHILS # (AUTO) 5.4 (2.1-6.9); NEUTROPHILS % 59.5 % (38.7-80.0); PLATELET COUNT 289 x10e3/uL (140-360); RED BLOOD COUNT 3.53 x10e6/uL (4.3-5.7); RED CELL DISTRIBUTION WIDTH 13.2 % (11.7-14.4); WHITE BLOOD COUNT 9.13 x10e3/uL (4.8-10.8)
[2023-01-28 06:22] LABS: ANION GAP 13.1 mmol/L (8-16); CALCIUM 8.6 mg/dL (8.4-10.2); CREATININE, SERUM 1.84 mg/dL (0.72-1.25); MAGNESIUM 1.9 MG/DL (1.3-2.1); POTASSIUM 4.1 mmol/L (3.5-5.1)
[2023-01-28] MEDS: INSULIN LISPRO 100 UNIT/1 ML 3ML VIAL SQ SCH ×4 (08:18→20:34)
[2023-01-28] MEDS: LOSARTAN POTASSIUM 25 MG TAB PO SCH (08:25)
[2023-01-28] MEDS: SODIUM BICARBONATE 650 MG TAB PO SCH (08:25)
[2023-01-28] MEDS: CLOPIDOGREL BISULFATE 75 MG TAB PO SCH (08:25)
[2023-01-28] MEDS: ASPIRIN 81 MG CHEW TAB PO SCH (08:25)
[2023-01-28] MEDS: Vancomycin IV 1 GM in SODIUM CHLORIDE 0.9% 250ML 250 ML IV SCH ×2 (08:26→09:00)
[2023-01-28] MEDS: ATENOLOL 50 MG TAB PO SCH (08:27)
[2023-01-28] MEDS ORDERED: METOPROLOL SUCC50 MG PO (08:42)
[2023-01-28] MEDS ORDERED: ULTRAM 50MG50 MG PO (08:42)
[2023-01-28] MEDS ORDERED: FLOMAX0.4 MG PO (08:42)
[2023-01-28] MEDS ORDERED: GLIPIZIDE5 MG PO (08:42)
[2023-01-28] MEDS: ONDANSETRON HCL 4 MG ORAL DISINTEGRATING TAB PO PRN (12:48)
[2023-01-28] MEDS: LACTATED RINGER'S 1,000 ML INJ ONE ×2 (18:26→18:47)
[2023-01-28] MEDS: TAMSULOSIN HCL 0.4 MG CAP PO SCH (20:31)
[2023-01-28] MEDS: ATORVASTATIN 40 MG TAB PO SCH (20:31)
[2023-01-28] MEDS: IRON SUCROSE 100 MG in SODIUM CHLORIDE 0.9% 100 ML IV SCH (20:31)
[2023-01-29 00:50] VITALS: BP 150/69; PULSE 58; RESP 18; TEMP 97.2; O2SAT 96
[2023-01-29 04:00] VITALS: BP 150/66; PULSE 61; RESP 18; TEMP 97.4; O2SAT 100
[2023-01-29] MEDS: Morphine 4mg INJECTION 4 MG/ML INJ IV PRN ×4 (04:03→18:08)
[2023-01-29 06:45] LABS: ANION GAP 13.9 mmol/L (8-16); CALCIUM 8.2 mg/dL (8.4-10.2); CREATININE, SERUM 1.63 mg/dL (0.72-1.25); POTASSIUM 3.9 mmol/L (3.5-5.1)
[2023-01-29] MEDS ORDERED: GLIPIZIDE 5 MG TAB PO SCH (07:30)
[2023-01-29] MEDS: INSULIN LISPRO 100 UNIT/1 ML 3ML VIAL SQ SCH ×3 (08:33→16:30)
[2023-01-29 09:00] VITALS: BP 156/65; PULSE 55; RESP 17; TEMP 97.9; O2SAT 98
[2023-01-29] MEDS ORDERED: BENAZEPRIL HCL 10 MG TAB PO SCH (09:00)
[2023-01-29] MEDS ORDERED: AMLODIPINE BESYLATE 10 MG TAB PO SCH (09:00)
[2023-01-29] MEDS ORDERED: PIOGLITAZONE HCL 15 MG TAB PO SCH (09:00)
[2023-01-29] MEDS: TAMSULOSIN HCL 0.4 MG CAP PO SCH (09:19)
[2023-01-29] MEDS: SODIUM BICARBONATE 650 MG TAB PO SCH (09:20)
[2023-01-29] MEDS: CLOPIDOGREL BISULFATE 75 MG TAB PO SCH (09:20)
[2023-01-29] MEDS: ASPIRIN 81 MG CHEW TAB PO SCH (09:20)
[2023-01-29] MEDS: Vancomycin IV 1 GM in SODIUM CHLORIDE 0.9% 250ML 250 ML IV SCH (09:23)
[2023-01-29 09:38] VITALS: BP 156/65; PULSE 55; RESP 17; TEMP 97.9; O2SAT 98
[2023-01-29] MEDS ORDERED: HYDRALAZINE HCL 20 MG/ML VIAL IV PRN (10:45)
[2023-01-29 14:09] VITALS: BP 153/65; PULSE 54; RESP 17; TEMP 98.1; O2SAT 98
[2023-01-29] MEDS ORDERED: AMOX TR-K CLV1 EAC2 PO (14:58)
[2023-01-29] MEDS ORDERED: ASPIRIN CHEW81 MG PO (14:58)
[2023-01-29] MEDS ORDERED: FEROSUL325 MG PO (14:58)
[2023-01-29] MEDS ORDERED: PLAVIX75 MG PO (14:58)
[2023-01-29] MEDS ORDERED: ONDANSETRON ODT4 MG PO (14:58)
[2023-01-29] MEDS ORDERED: SODIUM BICARBO650 MG PO (14:58)
[2023-01-29] MEDS ORDERED: VITAMIN C500 M2 PO (14:58)
[2023-01-29 17:42] VITALS: BP 173/77; PULSE 65; RESP 17; TEMP 98.4; O2SAT 96
[2023-01-29] MEDS ORDERED: METOPROLOL SUCCINATE 50 MG TAB XL PO SCH (21:00)
== END 2023-01-29 18:35 | disposition home or self-care (01) | DRG 603 ==
LOC: ER 05:10 → ERHOLD 06:00 → MED/SURG 13:10 → MED/SURG3 13:25
PROVIDERS: ADMIT Internal Medicine; ATTEND Internal Medicine
DX: L03.115 Cellulitis of right lower limb (principal); I13.0 Hypertensive heart and chronic kidney disease with heart failure and stage 1 through stage 4 chronic kidney disease, or unspecified chronic kidney disease; N17.9 Acute kidney failure, unspecified; E87.20 Acidosis, unspecified; Z11.52 Encounter for screening for COVID-19; E11.22 Type 2 diabetes mellitus with diabetic chronic kidney disease; E78.5 Hyperlipidemia, unspecified; M54.9 Dorsalgia, unspecified; G89.29 Other chronic pain; Z90.49 Acquired absence of other specified parts of digestive tract; Z96.659 Presence of unspecified artificial knee joint; Z89.611 Acquired absence of right leg above knee; Z96.642 Presence of left artificial hip joint; Z79.82 Long term (current) use of aspirin; Z79.4 Long term (current) use of insulin; I25.10 Atherosclerotic heart disease of native coronary artery without angina pectoris; Z95.5 Presence of coronary angioplasty implant and graft; F17.210 Nicotine dependence, cigarettes, uncomplicated; E11.65 Type 2 diabetes mellitus with hyperglycemia; E11.69 Type 2 diabetes mellitus with other specified complication; N18.32 Chronic kidney disease, stage 3b; R80.9 Proteinuria, unspecified; H91.90 Unspecified hearing loss, unspecified ear; E87.5 Hyperkalemia; D63.1 Anemia in chronic kidney disease; N40.0 Benign prostatic hyperplasia without lower urinary tract symptoms; R74.01 Elevation of levels of liver transaminase levels; M79.89 Other specified soft tissue disorders
CPT/HCPCS: 36415; 76770; 80048; 80053; 80202; 81001; 82550; 82570; 82728; 82948; 83540; 83735; 84100; 84156; 84466; 84484; 84550; 85025; 99252; 99285; J1756; J2270; J2405; J2543; J3475; J7030; J7050; Q0162; U0002

== ENCOUNTER 2024-06-30 01:11 | Emergency (ER) | payer MEDICARE, OTHER ==
[~2024-06-30] VITALS: Ht 208.3 cm; Wt 86.2 kg
[~2024-06-30 01:11] MED LIST changes: +AMOX TR-K CLV1 EAC2 PO; +ASPIRIN CHEW81 MG PO; +FEROSUL325 MG PO; +GLIPIZIDE5 MG PO; +METOPROLOL SUCC50 MG PO; +PLAVIX75 MG PO; +SODIUM BICARBO650 MG PO; +VITAMIN C500 M2 PO
[2024-06-30 01:20] VITALS: PULSE 85; RESP 20; TEMP 98.1
[2024-06-30] MEDS: KETOROLAC TROMETHAMINE 30 MG/ML VIAL IV STA (01:43)
[2024-06-30] MEDS: SODIUM CHLORIDE 0.9% 1000ML 1,000 ML IV STA (01:43)
[2024-06-30 01:45] LABS: BASOPHILS # (AUTO) 0.1 (0.0-0.1); BASOPHILS % 0.5 % (0.0-1.0); EOSINOPHILS # (AUTO) 0.3 (0.0-0.4); EOSINOPHILS % 2.1 % (0.0-6.0); HEMATOCRIT 32.5 % (38.2-49.6); HEMOGLOBIN 10.1 g/dL (14.0-18.0); LYMPHOCYTES # (AUTO) 2.4 (1.0-3.2); LYMPHOCYTES % 18.6 % (18.0-39.1); MEAN CORPUSCULAR HEMOGLOBIN 30.6 pg (28-32); MEAN CORPUSCULAR HGB CONC 31.1 g/dL (31-35); MEAN CORPUSCULAR VOLUME 98.5 fL (81-99); MONOCYTES # (AUTO) 0.7 (0.2-0.8); MONOCYTES % 5.2 % (4.4-11.3); NEUTROPHILS # (AUTO) 9.3 (2.1-6.9); NEUTROPHILS % 73.4 % (38.7-80.0); PLATELET COUNT 195 x10e3/uL (140-360); WHITE BLOOD COUNT 12.61 x10e3/uL (4.8-10.8)
[2024-06-30 02:05] LABS: ALBUMIN 3.7 g/dL (3.5-5.0); ALBUMIN/GLOBULIN RATIO 1.1 (0.8-2.0); ANION GAP 16.8 mmol/L (8-16); BILIRUBIN,TOTAL 0.3 mg/dL (0.2-1.2); CALCIUM 8.7 mg/dL (8.4-10.2); CREATININE, SERUM 2.25 mg/dL (0.72-1.25); POTASSIUM 4.8 mmol/L (3.5-5.1); TOTAL PROTEIN 7.1 g/dL (6.5-8.1)
[2024-06-30 02:09] LABS: BILIRUBIN,URINE NEGATIVE (NEGATIVE); CLARITY,URINE CLEAR (CLEAR); COLOR,URINE YELLOW (YELLOW); GLUCOSE, URINE NEGATIVE (NEGATIVE); KETONES,URINE NEGATIVE (NEGATIVE); LEUKOCYTE ESTERASE ,URINE SMALL (NEGATIVE); NITRITE,URINE NEGATIVE (NEGATIVE); PH,URINE 5.5 (5 - 7); PROTEIN,URINE DIPSTICK >=300 (NEGATIVE); URINE UROBILINOGEN 0.2 mg/dL (0.2 - 1)
[2024-06-30 02:19] LABS: BACTERIA,URINE MANY /HPF; EPITHELIAL CELLS,URINE FEW /LPF; RBC,URINE >50 /HPF (0-5)
[2024-06-30] MEDS ORDERED: MIRALAX17 GM PO (02:58)
[2024-06-30 02:59] VITALS: BP 130/71; PULSE 74; RESP 16; TEMP 98.7; O2SAT 98
[2024-06-30] MEDS ORDERED: FLOMAX0.4 MG PO (03:10)
[2024-07-01] MEDS ORDERED: ROSUVASTATIN CA40 MG PO (07:38)
== END 2024-06-30 03:10 | disposition home or self-care (01) ==
LOC: ER 01:20
DX: R10.31 Right lower quadrant pain (principal); N13.30 Unspecified hydronephrosis; K57.90 Diverticulosis of intestine, part unspecified, without perforation or abscess without bleeding; I71.43 Infrarenal abdominal aortic aneurysm, without rupture; R11.2 Nausea with vomiting, unspecified; I10 Essential (primary) hypertension; E11.65 Type 2 diabetes mellitus with hyperglycemia; E78.5 Hyperlipidemia, unspecified; M54.9 Dorsalgia, unspecified; G89.29 Other chronic pain; Z95.5 Presence of coronary angioplasty implant and graft; Z98.0 Intestinal bypass and anastomosis status; Z96.642 Presence of left artificial hip joint
CPT/HCPCS: 36415; 74176; 80053; 81001; 83690; 85025; 99284; J1885; J7030

== ENCOUNTER 2024-09-07 08:37 | Inpatient (IN) | payer MEDICARE, OTHER ==
[~2024-09-07] VITALS: Ht 177.8 cm; Wt 77.1 kg
[~2024-09-07 08:37] MED LIST changes: +MIRALAX17 GM PO; +ROSUVASTATIN CA40 MG PO
[2024-09-07 09:11] VITALS: TEMP 98.1
[2024-09-07 09:26] LABS: BASOPHILS % 0.9 % (0.0-1.0); EOSINOPHILS % 2.7 % (0.0-6.0); LYMPHOCYTES % 20.5 % (18.0-39.1); MONOCYTES % 5.5 % (4.4-11.3); NEUTROPHILS % 70.0 % (38.7-80.0); RED CELL DISTRIBUTION WIDTH 14.0 % (11.7-14.4)
[2024-09-07] MEDS: ONDANSETRON HCL INJ 2MG/ML 2ML 2 MG/ML VIAL IV STA (09:48)
[2024-09-07] MEDS: Morphine 2mg Syringe 2 MG/ML SYR IV STA (09:49)
[2024-09-07] MEDS: SODIUM CHLORIDE 0.9% 500ML 500 ML IV ONE (09:49)
[2024-09-07 10:11] LABS: EST GLOMERULAR FILTRATION RATE 23.0 ML/MIN (>=60)
[2024-09-07 10:13] LABS: INR 1.02
[2024-09-07 11:05] LABS: CORONAVIRUS COVID-19 AG NEGATIVE (NEGATIVE)
[2024-09-07] MEDS: CEFEPIME 2 GM in SODIUM CHLORIDE 0.9% 100 ML IV ONE (11:08)
[2024-09-07] MEDS: Vancomycin IV 1 GM in SODIUM CHLORIDE 0.9% 250ML 250 ML IV ONE (12:15)
[2024-09-07] MEDS: SODIUM CHLORIDE 0.9% 1000ML 1,000 ML IV STA (12:16)
[2024-09-07 12:19] VITALS: PULSE 75; RESP 19
[2024-09-07 12:30] LABS: LEUKOCYTE ESTERASE ,URINE NEGATIVE (NEGATIVE); PROTEIN,URINE DIPSTICK >=300 (NEGATIVE); URINE UROBILINOGEN 0.2 mg/dL (0.2 - 1)
[2024-09-07 12:46] LABS: EPITHELIAL CELLS,URINE MODERATE /LPF
[2024-09-07] MEDS: SODIUM CHLORIDE 0.9% 1000ML 1,000 ML IV ONE (13:35)
[2024-09-07] MEDS: Morphine 2mg Syringe 2 MG/ML SYR IV PRN (13:36)
[2024-09-07] MEDS ORDERED: TRAMADOL HCL 50 MG TAB PO PRN (15:45)
[2024-09-07] MEDS ORDERED: DEXTROSE 50% SYRINGE 50 ML IV PRN (15:45)
[2024-09-07] MEDS: INSULIN LISPRO 100 UNIT/1 ML 3ML VIAL SQ SCH (16:30)
[2024-09-07 17:44] VITALS: BP 196/85; PULSE 74; RESP 17; TEMP 98.3; O2SAT 97
[2024-09-07 19:53] VITALS: BP 182/75; PULSE 68; RESP 17; TEMP 98.3; O2SAT 99
[2024-09-07] MEDS: ONDANSETRON HCL INJ 2MG/ML 2ML 2 MG/ML VIAL IV PRN (21:33)
[2024-09-07] MEDS: TAMSULOSIN HCL 0.4 MG CAP PO SCH (21:35)
[2024-09-07] MEDS: METOPROLOL SUCCINATE 50 MG TAB XL PO SCH (21:35)
[2024-09-08 00:04] VITALS: BP 174/88; PULSE 81; RESP 16; TEMP 97.7; O2SAT 100
[2024-09-08 08:20] LABS: BASOPHILS % 0.7 % (0.0-1.0); EOSINOPHILS % 1.8 % (0.0-6.0); LYMPHOCYTES % 20.0 % (18.0-39.1); MONOCYTES % 6.4 % (4.4-11.3); NEUTROPHILS % 70.8 % (38.7-80.0); RED CELL DISTRIBUTION WIDTH 13.9 % (11.7-14.4)
[2024-09-08 08:35] VITALS: BP 128/55; PULSE 84; RESP 20; TEMP 97.9; O2SAT 99
[2024-09-08] MEDS: CALCIUM CARBONATE 500 MG CHEWABLE TABS ONE (08:56)
[2024-09-08 09:05] LABS: EST GLOMERULAR FILTRATION RATE 28.0 ML/MIN (>=60)
[2024-09-08 10:55] VITALS: BP 128/55; PULSE 84; RESP 20; TEMP 97.9; O2SAT 99
[2024-09-08 12:29] VITALS: BP 150/64; PULSE 81; RESP 20; TEMP 97.9; O2SAT 100
[2024-09-08 13:13] LABS: ABG BASE EXCESS -14.0 mmol/L (-2 - 3); ABG HCO3 12 mmol/L (22-26); ABG OXYGEN SATURATION 55.0 % (95-98); ABG PCO2 26 mmHg (35-45); ABG PH 7.29 (7.35-7.45); ABG PO2 32 mmHg (80-105); ABG TCO2 13
[2024-09-08 16:00] VITALS: BP 146/76; PULSE 75; RESP 20; TEMP 97.8; O2SAT 98
[2024-09-08] MEDS: SODIUM BICARBONATE 8.4% VIAL 50 ML in SODIUM CHLORIDE 0.45% 1,000 ML IV ONE (17:49)
[2024-09-08] MEDS ORDERED: CALCIUM CARBONATE 500 MG CHEWABLE TABS PO PRN (18:30)
[2024-09-08 20:00] VITALS: BP 140/77; PULSE 78; RESP 22; TEMP 97; O2SAT 99
[2024-09-09 04:45] VITALS: BP 140/77; PULSE 78; RESP 22; TEMP 97; O2SAT 99
[2024-09-09 06:38] LABS: EST GLOMERULAR FILTRATION RATE 31.0 ML/MIN (>=60)
[2024-09-09 08:58] VITALS: BP 152/80; PULSE 78; RESP 20; TEMP 97.3; O2SAT 100
[2024-09-09 09:33] VITALS: BP 152/80; PULSE 78; RESP 20; TEMP 97.3; O2SAT 100
[2024-09-09 12:27] VITALS: BP 139/78; PULSE 84; RESP 18; TEMP 98.6; O2SAT 98
[2024-09-09 17:06] VITALS: BP 129/67; PULSE 91; RESP 18; TEMP 97.8; O2SAT 100
[2024-09-10 12:52] VITALS: BP 126/77; PULSE 78; RESP 18; TEMP 97.5; O2SAT 99
[2024-09-15 10:50] LABS: ABG BASE EXCESS -4.0 mmol/L (-2 - 3); ABG HCO3 21 mmol/L (22-26); ABG OXYGEN SATURATION 95.0 % (95-98); ABG PCO2 36 mmHg (35-45); ABG PH 7.38 (7.35-7.45); ABG PO2 74 mmHg (80-105); ABG TCO2 22
== END 2024-09-09 18:00 | disposition home or self-care (01) | DRG 641 ==
LOC: ER 08:43 → ERHOLD 13:06 → MED/SURG2 17:17
PROVIDERS: ADMIT Internal Medicine; ATTEND Internal Medicine
PROC: 4A133R1 Monitoring of Arterial Saturation, Peripheral, Percutaneous Approach (ICD-10-PCS; principal; 2024-09-07)
DX: E87.20 Acidosis, unspecified (principal); N17.9 Acute kidney failure, unspecified; N18.4 Chronic kidney disease, stage 4 (severe); E11.22 Type 2 diabetes mellitus with diabetic chronic kidney disease; I12.9 Hypertensive chronic kidney disease with stage 1 through stage 4 chronic kidney disease, or unspecified chronic kidney disease; I25.10 Atherosclerotic heart disease of native coronary artery without angina pectoris; M54.9 Dorsalgia, unspecified; E78.5 Hyperlipidemia, unspecified; Z11.52 Encounter for screening for COVID-19; Z79.84 Long term (current) use of oral hypoglycemic drugs; Z86.73 Personal history of transient ischemic attack (TIA), and cerebral infarction without residual deficits; Z90.49 Acquired absence of other specified parts of digestive tract; Z95.5 Presence of coronary angioplasty implant and graft; Z88.5 Allergy status to narcotic agent; Z88.8 Allergy status to other drugs, medicaments and biological substances
CPT/HCPCS: 36415; 36600; 71045; 74176; 80048; 80053; 81001; 82550; 82805; 82948; 83605; 83735; 84484; 85025; 85610; 85730; 87040; 87086; 87106; 93005; 96372; 99284; J0692; J2270; J2405; J2470; J3373; J7030; J7040; J7050